=== PATIENT | male | born 1950 | race Caucasian/White ===

== ENCOUNTER → 2018-09-29 | Day surgery (SDC) | payer MEDICARE ==
[2018-09-28 14:48] LABS: BASOPHILS # (AUTO) 0.1 (0.0-0.1); BASOPHILS % 0.8 % (0.0-1.0); EOSINOPHILS # (AUTO) 0.2 (0.0-0.4); EOSINOPHILS % 3.1 % (0.0-6.0); HEMATOCRIT 43.6 % (38.2-49.6); HEMOGLOBIN 14.4 g/dL (14.0-18.0); LYMPHOCYTES # (AUTO) 2.2 (1.0-3.2); LYMPHOCYTES % 33.8 % (18.0-39.1); MEAN CORPUSCULAR HEMOGLOBIN 31.4 pg (28-32); MONOCYTES # (AUTO) 0.6 (0.2-0.8); MONOCYTES % 9.5 % (4.4-11.3); NEUTROPHILS # (AUTO) 3.4 (2.1-6.9); NEUTROPHILS % 51.9 % (38.7-80.0); PLATELET COUNT 177 x10e3/uL (140-360); RED BLOOD COUNT 4.59 x10e6/uL (4.3-5.7); RED CELL DISTRIBUTION WIDTH 12.9 % (11.7-14.4)
[~2018-09-29] MED LIST: CLONAZEPAM1 MG PO; FENTANYL CITRATE/PF 100MCG/2 ML INJ ONE; LOSARTAN-HCTZ1 EAC1 PO; MIDAZOLAM HCL 2 MG/2 ML VIAL ONE; NIACIN500 M2 PO; PANTOPRAZOLE SO40 MG PO; PROPOFOL IV EMULSION 10 MG/ML 50 ML VIAL ONE; REGLAN5 MG PO; SIMETHICONE 40 MG/0.6 ML BTL ONE; TESTOSTERO100 MG/1 M INJ; VIAGRA50 MG PO
--- OUTSIDE RECORDS SUMMARY | 2018-09-29 06:51 | XMS REPORT ---
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 Allergies, Adverse Reactions, Alerts This patient has no known allergies or adverse reactions. Medications This patient has no known medications. Results Test Description Test Time Test Comments Text Results Atomic Results Result Comments CHEST 2 VIEWS [place] [address] Patient Name: WILSON BELLA MR #: [id number] : 1950 Age/Sex: 66/M Req #: [id number] Adm Physician: Ordered by: CHERYL PEACE MD Report #: [id number] Location: [facility] Room/Bed: Procedure: [id number] DX/CHEST 2 VIEWS Exam Date: 01/20/17 Exam Time: 1110 REPORT STATUS: Signed PROCEDURE: Frontal and lateral views of the chest. COMPARISON: None. INDICATIONS: SPOT ON LEFT SIDE OF CHEST ON OUTSIDE NUCLEAR MEDICINE TEST. DENIES COMPLAINT FINDINGS: Lines/tubes: None. Lungs: The lungs are well inflated and clear. There is no evidence of pneumonia or pulmonary edema. Pleura: There is no pleural effusion or pneumothorax. Heart and mediastinum: The heart and the mediastinum are normal. Bones: No acute bony abnormality. Degenerative changes of the thoracic spine. IMPRESSION: No acute radiographic abnormality. Dictated by: Dominick Rothman M.D. on 01/20/2017 at 12:19 Electronically approved by: Dominick Rothman M.D. on 01/20/2017 at 12:19 Dictated By: DOMINICK ROTHMAN MD 121 Transcribed By: [place] on 01/20/179 COPY TO: CHERYL PEACE MD
--- OUTSIDE RECORDS SUMMARY | 2018-09-29 06:51 | XMS REPORT | Summary of Care ---
Author Author [facility] Organization [facility] Address Unknown Phone Unavailable Encounter HQ Encntr_alias(FIN) [id number] Date(s): 07/24/17 - 07/24/17 [facility] [address], [place] [address] [phone] Encounter Diagnosis Radiculopathy, lumbar region (Final) - 07/29/17 Spinal stenosis, lumbar region without neurogenic claudication (Final) - Discharge Disposition: Home or Self Care Attending Physician: Kranthi Mcgill MD Vital Signs No data available for this section Problem List No data available for this section Allergies, Adverse Reactions, Alerts Substance Reaction Severity Status NKDA Active Medications No data available for this section Results No data available for this section Immunizations No data available for this section Procedures No data available for this section Social History No data available for this section Assessment and Plan No data available for this section
--- OUTSIDE RECORDS SUMMARY | 2018-09-29 06:51 | XMS REPORT | Continuity of Care Document ---
Author Author Lesly hemphill Organization Interface Address Unknown Phone Unavailable Problems Problem Status Onset Date Classification Date Reported Comments Source Radiculopathy, lumbar region 07/30/2017 10/31/2017 GUANAKITO Conteh M75.21 - "BICIPITAL TENDINITIS, RIGHT SH Active 03/27/2016 GUANAKITO Hemphill 724.2 - LUMBAGO 724.4 - LUMBOSACRAL DUY Active 11/22/2012 G[facility]O [place] ANAL FISSURE 565.0 565.1 455.2/CPT [id number] Active 02/23/2011 [facility] Spinal stenosis, lumbar region without neurogenic claudication 10/31/2017 GUANAKITO Conteh Medications Medication Details Route Status Patient Instructions Ordering Provider Order Date Source fentanyl 25 microgram, 0.5 mL, Route: IVP, Drug form: INJ, Q5Min, PRN Pain Score 4-6, Start date: 03/19/11 12:41:00, Duration: 4 doses or times, Stop date: Limited # of times IVP No Longer Active Shawn 03/19/2011 [facility] acetaminophen-hydrocodone 325 mg-5 mg oral tablet 1 tab, Route: PO, Drug Form: TAB, Q4H, PRN Pain Score 1-3, Start date: 03/19/11 12:41:00, Duration: 30 day, Stop date: 04/18/11 12:40:00 PO No Longer Active Shawn 03/19/2011 [facility] ondansetron 4 mg, 2 mL, Route: IVP, Drug form: INJ, ONCE, PRN Nausea & Vomiting, Start date: 03/19/11 12:41:00 IVP No Longer Active Shawn 03/19/2011 [facility] naloxone 0.04 mg, 0.1 mL, Route: IVP, Drug form: INJ, Q2MIN, PRN Narcotic Reversal, Start date: 03/19/11 12:41:00, Duration: 8 doses or times, Stop date: Limited # of times IVP No Longer Active Shawn 03/19/2011 [facility] ketorolac 30 mg, 1 mL, Route: IVP, Drug form: INJ, ONCE, PRN Breakthrough Pain, Start date: 03/19/11 12:41:00, Duration: 1 doses or times, Stop date: Limited # of times IVP No Longer Active Shawn 03/19/2011 [facility] hydromorphone 0.5 mg, 0.5 mL, Route: IVP, Drug form: SOLN, Q5Min, PRN Pain Score 4-6, Start date: 03/19/11 12:41:00, Duration: 5 doses or times, Stop date: Limited # of times IVP No Longer Active Shawn 03/19/2011 [facility] meperidine 12.5 mg, 0.25 mL, Route: IVP, Drug form: INJ, Q30Min, PRN Other -See Comment, For shivering, Start date: 03/19/11 12:41:00, Duration: 2 doses or times, Stop date: Limited # of times IVP No Longer Active Shawn 03/19/2011 [facility] flumazenil 0.2 mg, 2 mL, Route: IVP, Drug form: INJ, PRN, PRN Other -See Comment, Initial dose, Start date: 03/19/11 12:41:00, Duration: 5 doses or times, Stop date: Limited # of times IVP No Longer Active Shawn 03/19/2011 [facility] Toradol 10 mg oral tablet 10 mg, PO, Q6H, PRN, 20 btl, Pain, Substitution Allowed, TAB PO Active Voloyiannis 03/19/2011 [facility] Vicodin 5/500 oral tablet 1 tab, PO, Q4H, PRN, 40 btl, for pain, Substitution Allowed, Maintenance, TAB PO Active Voloyiannis 03/19/2011 [facility] lidocaine 1% 0.5 mL, Route: SUB-Q, Drug Form: INJ, ONCALL, Start date: 03/19/11 11:00:00, Duration: 1 doses or times SUB-Q No Longer Active Shawn 03/19/2011 [facility] Lactated Ringers Injection IV 1,000 mL 1,000 mL, Rate: 25 ml/hr, Infuse over: 40 hr, Route: IV, Total Volume: 1,000, Start date: 03/19/11 10:32:00, Duration: 30 day, Stop date: 04/18/11 10:31:00 IV No Longer Active Shawn 03/19/2011 [facility] Lactated Ringers IV 500 mL 500 mL, Rate: 75 ml/hr, Infuse over: 6.7 hr, Route: IV, Total Volume: 500, Start date: 03/19/11 10:32:00, Duration: 30 day, Stop date: 04/18/11 10:31:00 IV No Longer Active Voloyiannis 03/19/2011 [facility] onabotulinumtoxinA 100 unit, Route: IM, Drug form: INJ, ONCE, Start date: 03/19/11 9:00:00, Stop date: 03/19/11 9:00:00 IM Active Voloyiannis 03/19/2011 [facility] doxycycline Substitution Allowed Active 03/13/2011 [facility] Ativan 0.5 mg oral tablet Substitution Allowed Active 03/13/2011 [facility] Livalo 1 mg oral tablet Substitution Allowed Active 03/13/2011 [facility] Bentyl 20 mg, 1 cap, PO, QID, PRN, 40 cap, Abdominal cramping, Substitution Allowed PO Active 03/13/2011 [facility] Dexilant 60 mg oral delayed release capsule Substitution Allowed Active 03/13/2011 [facility] Allergies, Adverse Reactions, Alerts Substance Category Reaction Severity Reaction type Status Date Reported Comments Source Immunizations Immunization Date Given Site Status Last Updated Comments Source Results Order Name Results Value Reference Range Date Interpretation Comments Source Spine lumbar wo contrast MRI Spine lumbar wo contrast MRI EXAM: MRI LUMBAR SPINE WITHOUT CONTRAST DATE: 07/24/2017 8:15 AM QUAL RESEARCH MANAGER . ORDERING PHYSICIAN: Kranthi Mcgill MD CLINICAL INDICATION: LBP; Numbness of Right Leg; Laminectomy - None; TECHNIQUE: Multiplanar, multisequence MRI lumbar spine without IV contrast COMPARISON: 11/24/2012 lumbar magnetic resonance imaging FINDINGS: For the purposes of enumeration, the lowest well formed intervertebral disc was counted as L5-S1 on this exam. INTRASPINAL CONTENTS/CONUS: The conus terminates at L1-L2. No definite dural based lesion. VERTEBRAE: The vertebrae are normal in height. The lordosis is straightened. No focal suspicious bone marrow signal abnormality. PARASPINAL SOFT TISSUES: No edema or definite masses. No aortic aneurysm. DISC SPACES, SPINAL CANAL, AND NEURAL FORAMINA: T12-L1. Intervertebral disc height and signal are maintained. Posterior elements are normal. There is no stenosis. L1-L2. Intervertebral disc height and signal are maintained. Posterior elements are normal. There is no stenosis. L2-L3. Dehydrated disc with diffuse bulge asymmetric to the right. This bilateral facet hypertrophy. Central canal measures 13 mm. Lateral recesses are narrowed. There is [id number]-ax-[id number] the exiting L2 nerve root. Narrowing of the right neural foramen with disc contacting the exiting L3-L4. Desiccated disc with circumferential disc osteophyte complex. There is bilateral facet hypertrophy. Patient has undergone left laminotomy. Central canal measures 12 mm. Lateral recesses are patent. There is moderate narrowing of left neural foramen and mild narrowing of the right. Left exiting nerve root is minimally contacted by facet osteophytes. L4-L5. Desiccated disc with circumferential disc osteophyte complex. There is bilateral facet hypertrophy. Central canal measures 8 mm with slight crowding of the cauda equina. The lateral recesses are narrowed. There is moderate to severe narrowing of the right neural foramina moderate narrowing of left. The right exiting nerve root is deformed by the disc and facets. L5-S1. Dehydrated disc with circumferential disc osteophyte complex. There is bilateral facet hypertrophy. Central canal measures 10 mm. Lateral recesses are narrowed. There is moderate severe narrowing of the right neural foramina moderate narrowing of the left. IMPRESSION: 1. L4-L5 spinal stenosis with mild crowding of the cauda equina 2. Moderate to severe neural foramen narrowing on the right at L4-L5 and L5-S1 07/24/2017 - - Read by: Vicente Frank MD Dictated Date/time: 07/25/17 13:40 Electronically Signed by: Vicente Frank MD 07/25/17 13:47 FINAL REPORT JOHN Conteh Drain/Inj Major Joint/Bursa US Drain/Inj Major Joint/Bursa US EXAM: ULTRASOUND-GUIDED THERAPEUTIC RIGHT BICEPS TENDON SHEATH INJECTION EXAM: ULTRASOUND-GUIDED RIGHT ACROMIOCLAVICULAR JOINT INJECTION DATE: 07/09/2016 12:44 PM QUAL RESEARCH MANAGER INDICATION: right bicep tear COMPARISON: None TECHNIQUE: Consent: An informed consent was obtained from the patient prior to the procedure. Appropriate time out procedures were performed. Preliminary ultrasound demonstrates an intact right biceps tendon with mildly increased synovial fluid around the biceps tendon distal to the bicipital groove. There was osteophytes and capsular thickening along the superior aspect of the right AC joint. The skin was prepped and draped in the usual fashion under aseptic precautions. 1% lidocaine was utilized for local anesthesia. Under direct ultrasound guidance a 25 gauge long spinal needle used to inject 40 mg Kenalog mixed with 1 mL 0.2% ropivacaine solution into the right biceps tendon sheath just distal to the bicipital groove. Post procedure images demonstrated no tendon infiltration. Then using a separate 25-gauge needle, under ultrasound guidance, 40 mg Kenalog mixed with 1 mL 0.2% ropivacaine solution was injected into the right AC joint. No immediate complications. Preprocedure pain score: 8/10 Postprocedure pain score: 8/10 Dr. Zaragoza, attending, was present for the procedure hayden components. IMPRESSION: 1. Technically successful ultrasound-guided therapeutic injection of the right biceps tendon. 2. Technically successful ultrasound-guided therapeutic injection of the right AC joint. 07/09/2016 - - This report was dictated by a Improvement Intern/Fellow. I have personally reviewed the images as well as the Resident's interpretation and agree with the findings. Read by: Jin De La Garza MD Resident: Jin De La Garza MD Dictated Date/time: 07/09/16 14:19 Electronically Signed by: Ron Zaragoza MD 07/10/16 07:17 FINAL REPORT GUANAKITO Hemphill Drain/Inj Major Joint/Bursa US Drain/Inj Major Joint/Bursa US EXAM: ULTRASOUND-GUIDED THERAPEUTIC RIGHT BICEPS TENDON SHEATH INJECTION EXAM: ULTRASOUND-GUIDED RIGHT ACROMIOCLAVICULAR JOINT INJECTION DATE: 07/09/2016 12:44 PM QUAL RESEARCH MANAGER INDICATION: right bicep tear COMPARISON: None TECHNIQUE: Consent: An informed consent was obtained from the patient prior to the procedure. Appropriate time out procedures were performed. Preliminary ultrasound demonstrates an intact right biceps tendon with mildly increased synovial fluid around the biceps tendon distal to the bicipital groove. There was osteophytes and capsular thickening along the superior aspect of the right AC joint. The skin was prepped and draped in the usual fashion under aseptic precautions. 1% lidocaine was utilized for local anesthesia. Under direct ultrasound guidance a 25 gauge long spinal needle used to inject 40 mg Kenalog mixed with 1 mL 0.2% ropivacaine solution into the right biceps tendon sheath just distal to the bicipital groove. Post procedure images demonstrated no tendon infiltration. Then using a separate 25-gauge needle, under ultrasound guidance, 40 mg Kenalog mixed with 1 mL 0.2% ropivacaine solution was injected into the right AC joint. No immediate complications. Preprocedure pain score: 8/10 Postprocedure pain score: 8/10 Dr. Zaragoza, attending, was present for the procedure hayden components. IMPRESSION: 1. Technically successful ultrasound-guided therapeutic injection of the right biceps tendon. 2. Technically successful ultrasound-guided therapeutic injection of the right AC joint. 07/09/2016 - - This report was dictated by a Improvement Intern/Fellow. I have personally reviewed the images as well as the Resident's interpretation and agree with the findings. Read by: Jin De La Garza MD Resident: Jin De La Garza MD Dictated Date/time: 07/09/16 14:19 Electronically Signed by: Ron Zaragoza MD 07/10/16 07:17 FINAL REPORT GUANAKITO Hemphill Shoulder w contrast MRI Shoulder w contrast MRI EXAM: MR ARTHROGRAM RIGHT SHOULDER DATE: 04/10/2016 8:53 AM QUAL RESEARCH MANAGER INDICATION: biceps tendinitis COMPARISON: None TECHNIQUE: Fluoroscopy-guided arthrogram was performed prior to MRI. Please see the corresponding report for further details. Axial, oblique coronal, and oblique sagittal MR images of the shoulder. IV contrast: None. FINDINGS: ROTATOR CUFF AND ASSOCIATED STRUCTURES Rotator cuff: There is a full-thickness tear of a 16 mm segment of the anterior supraspinatus tendon, which cuts obliquely through the supraspinatus tendon. There is 11 mm soft tissue stump along the leading edge of this tear. Less than a centimeter of maximal tendon retraction. The teres minor and infraspinatus are intact. Mild tendinosis of the subscapularis without tear identified. Bursa: Contrast in the subdeltoid bursa related to intra-articular contrast extending through full-thickness rotator cuff tear. Musculature: There is no muscular tear, contusion, or atrophy. Acromioclavicular joint: There are moderate degenerative changes of AC joint with fluid in the AC joint. degenerative changes of the acromioclavicular joint. A type 1 acromion configuration is noted. There is no anterior or lateral acromial downsloping. OSSEOUS STRUCTURES There are no fractures or regions of abnormal bone marrow signal intensity. LONG BICIPITAL TENDON Biceps tendon is normally situated within the bicipital groove. Mild intra- articular biceps tendinosis. GLENOHUMERAL JOINT Joint fluid: There is contrast in the glenohumeral joint.. Cartilage and Bone: No focal hyaline cartilage defects are noted. No Hill-Sachs, reverse Hill-Sachs, or bony Bankart lesions are seen. Labrum: Degenerative tearing of the biceps-labral complex. Anterior labrum is diffusely diminutive. No paralabral cysts are seen. Other support structures: No capsular or ligamentous abnormality is seen. OTHER FINDINGS: None. IMPRESSION: 1. Supraspinatus tendinosis with full-thickness tear of a 16 mm segment of the anterior supraspinatus tendon. Less than a centimeter of maximal tendon retraction. Rotator cuff muscle bulk is normal. 2. Degenerative tearing of the biceps-labral complex. Anterior labrum is diffusely diminutive. 3. Mild intra-articular biceps tendinosis. 4. Moderate degenerative changes of AC joint with fluid in the AC joint. 04/10/2016 - - Read by: Ron Zaragoza MD Dictated Date/time: 04/10/16 15:31 Electronically Signed by: Ron Zaragoza MD 04/10/16 15:54 FINAL REPORT GUANAKITO Hemphill Inj Arthrogram Shoulder Unilat DX Inj Arthrogram Shoulder Unilat DX EXAM: FLUOROSCOPY-GUIDED RIGHT SHOULDER INJECTION FOR MR ARTHROGRAM DATE: 04/10/2016 8:19 AM QUAL RESEARCH MANAGER INDICATION: M75.21 Bicipital tendinitis, right shoulder COMPARISON: None TECHNIQUE: Consent: An informed consent was obtained from the patient prior to the procedure. Appropriate time out procedures were performed. The skin was prepped and draped in the usual fashion under aseptic precautions. 1% lidocaine was utilized for local anesthesia. Under fluoroscopic guidance a 22 gauge long spinal needle was used to access the shoulder joint. 2 mL of Omnipaque 240 was injected under fluoroscopic guidance to confirm intra- articular needle placement. 40 mg of Kenalog was injected into the right shoulder joint. 6 mL of a mixture of 0.1 mL Omniscan with 10 mL of saline, and 4 mL of 0.2% ropivacaine were drawn into a 10 mL syringe. 8 mL of this mixture was injected into the shoulder joint. No immediate complications. Preprocedure pain score: 0/10 at rest, 6-7/10 with activity Postprocedure pain score: 0/10 at rest FLUORO TIME: 0:03 minutes DAP: 0.91 mGy-cm2 FINDINGS: A normal shoulder joint was outlined. IMPRESSION: Technically successful fluoroscopy-guided right shoulder injection for MR arthrogram. 04/10/2016 - - Read by: Ron Zaragoza MD Dictated Date/time: 04/10/16 13:07 Electronically Signed by: Ron Zaragoza MD 04/10/16 13:09 FINAL REPORT GUANAKITO Hemphill Spine lumbar wo contrast MRI Spine lumbar wo contrast MRI MRI LUMBAR SPINE WITHOUT CONTRAST 11/24/2012 CLINICAL: Back pain and right lumbar radiculopathy. TECHNIQUE: Sagittal T1, sagittal T2 with fat saturation, axial T1 and axial T2 images were obtained. No intravenous gadolinium was given. FINDINGS: Comparison is made to 11/16/2012 radiographs. The paravertebral soft tissues are normal. The conus medullaris terminates at the L1-L2 level. L1-L2: Unremarkable. L2-L3: Minimal grade 1 anterolisthesis is present due to mild facet arthrosis and ligamenta flava redundancy. Right foraminal and extraforaminal annular fissuring is present. In addition, right foraminal broad-based disc protrusion is present measuring 5.5 mm in the AP dimension with mild right foraminal stenosis. Impingement of the right L2 exiting nerve root sleeve is present. No central canal stenosis is present. L3-L4: Moderate left foraminal and extraforaminal disc osteophyte complex is present with moderate left foraminal stenosis and mild impingement of the left L3 exiting nerve root sleeve. Left laminectomy changes are seen. No pseudomeningocele, osteomyelitis, or discitis is seen. Mild dorsal disc osteophyte complex is present without central canal stenosis. L4-L5: Grade 1 retrolisthesis is present with mild dorsal disc osteophyte complex. Along with the short lumbar pedicles, moderate ligament flava redundancy and facet arthrosis, there is moderate to severe central canal stenosis at this level. Severe right foraminal stenosis is present due to the prominent right foraminal and extraforaminal osteophytes. Moderate left foraminal stenosis is present. The lateral recesses are significantly stenotic with impingement of the bilateral L5 descending nerve roots. L5-S1: Mild disc bulge is seen with circumferential annular tear. Mild central canal stenosis is present. The lateral recesses are stenotic with minimal impingement of the bilateral S1 proximal nerve root sleeves. Mild bilateral foraminal stenosis is present. IMPRESSION: 1. Multilevel disc degenerative disease and spondylosis. 2. L2-L3 right foraminal disc protrusion with mild right foraminal stenosis and impingement of the right L2 exiting nerve root sleeve. Grade 1 anterolisthesis present. 3. L3-L4 moderate left foraminal stenosis due to degenerative changes with mild impingement of the left L3 exiting nerve root sleeve. Postsurgical changes without central canal stenosis. 4. L4-L5 moderate to severe central canal stenosis, severe right foraminal stenosis, and moderate left foraminal stenosis. Impingement of the bilateral L5 descending nerve roots present due to significant lateral recess stenosis. 5. L5-S1 mild central canal stenosis and mild bilateral foraminal stenosis. Minimal impingement of the bilateral S1 proximal nerve root sleeves suspected. 11/24/2012 - - Read by: Rommel Hamm Dictated Date/time: 11/24/12 12:59 Electronically Signed by: Rommel Hamm MD 11/24/12 17:29 FINAL REPORT [facility] [place] CHEMISTRY AGAP 11.7 meq/L 10.0 - 20.0 03/13/2011 Normal [facility] CHEMISTRY Chloride Lvl 104.0 meq/L 95 - 109 03/13/2011 Normal [facility] CHEMISTRY Sodium Lvl 140.0 meq/L 135 - 145 03/13/2011 Normal [facility] CHEMISTRY Creatinine Lvl 1.3 mg/dL 0.5 - 1.4 03/13/2011 Normal [facility] CHEMISTRY Potassium Lvl 4.7 meq/L 3.5 - 5.1 03/13/2011 Normal [facility] CHEMISTRY Calcium Lvl 9.0 mg/dL 8.5 - 10.5 03/13/2011 Normal [facility] CHEMISTRY CO2 29.0 meq/L 24 - 32 03/13/2011 Normal [facility] CHEMISTRY BUN 17.0 mg/dL 7 - 22 03/13/2011 Normal [facility] CHEMISTRY Glucose Lvl 108.0 mg/dL 03/13/2011 NA 1Interpretive Data: Reference Ranges : 0 - 7 days : 41 - 90 mg/dL7 days - 150 yrs : 70 - 99 mg/dL (fasting), based on the clinical recommendations of the [place] [employer]. [facility] HEMATOLOGY Hct 42.3 % 42.0 - 54.0 03/13/2011 Normal [facility] HEMATOLOGY Hgb 14.8 g/dL 14.0 - 18.0 03/13/2011 Normal [facility] Vital Signs Vital Sign Value Date Comments Source Systolic (mm Hg) 133.0 03/19/2011 [facility] Respitory Rate 18.0 03/19/2011 [facility] Diastolic (mm Hg) 84.0 03/19/2011 [facility] Systolic (mm Hg) 129.0 03/19/2011 [facility] Respitory Rate 5.0 03/19/2011 [facility] Diastolic (mm Hg) 89.0 03/19/2011 [facility] Diastolic (mm Hg) 76.0 03/19/2011 [facility] Systolic (mm Hg) 127.0 03/19/2011 [facility] Respitory Rate 10.0 03/19/2011 [facility] Heart Rate 70.0 03/19/2011 [facility] Temperature Oral (F) 98.4 F 03/13/2011 [facility] Heart Rate 72.0 03/13/2011 [facility] Weight 97.727 03/13/2011 [facility] Height 175.26 cm 03/13/2011 [facility] Encounters Location Location Details Encounter Type Encounter Number Reason For Visit Attending Provider ADM Date DC Date Status Source [facility] DS [id number] THEMARITZA HALE 03/19/2011 03/19/2011 Active [facility] OD [id number] 724.2 - LUMBAGO 724.4 - LUMBOSACRAL DUY MARK DUNLAPN 11/24/2012 Active GUANAKITO Conteh [facility] [place] [facility] [id number] Ruel Burton 04/10/2016 04/11/2016 GUANAKITO Hemphill [facility] [place] [facility] [id number] Kranthi Mcgill 07/09/2016 07/10/2016 [place] [facility] [place] [facility] [id number] Kranthi Artem 07/24/2017 07/25/2017 JOHN Conteh Procedures Procedure Code Date Perfomer Comments Source DRAIN/INJ JOINT/BURSA W07/09/2016 JOHN Hemphill DRAIN/INJ JOINT/BURSA 07/09/2016 JOHN Hemphill Injection procedure for shoulder arthrography or enhanced CT/MRI shoulder arthrography [id number] 04/10/2016 JOHN Hemphill
--- OUTSIDE RECORDS SUMMARY | 2018-09-29 06:51 | XMS REPORT | Summary of Care ---
Author Author [facility] [place] Address Unknown Phone Unavailable Encounter HQ Encntr_alias(FIN) [id number] Date(s): 04/10/16 - 04/10/16 [facility] [place] [address] [place] [address] [phone] Discharge Disposition: Home or Self Care Attending Physician: Ruel Burton MD Vital Signs No data available for this section Problem List No data available for this section Allergies, Adverse Reactions, Alerts Substance Reaction Severity Status NKDA Active Medications No data available for this section Results No data available for this section Immunizations No data available for this section Procedures Procedure Date Related Diagnosis Body Site Injection procedure for shoulder arthrography 04/10/[address]/MRI shoulder arthrography Social History No data available for this section Assessment and Plan No data available for this section
--- OUTSIDE RECORDS SUMMARY | 2018-09-29 06:51 | XMS REPORT | CCD ---
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
--- OUTSIDE RECORDS SUMMARY | 2018-09-29 06:51 | XMS REPORT | Summary of Care ---
Author Author [facility] [place] Address Unknown Phone Unavailable Encounter HQ Encntr_alias(FIN) [id number] Date(s): 07/09/16 - 07/09/16 [facility] Out[facility] [place] [address] [place] [phone] Discharge Disposition: Home or Self Care Attending [...] Procedures Procedure Date Related Diagnosis Body Site DRAIN/INJ JOINT/BURSA W/ 07/09/16 DRAIN/INJ JOINT/BURSA W/ 07/09/16 Social History No data available for this section Assessment and Plan No data available for this section
--- OUTSIDE RECORDS SUMMARY | 2018-09-29 06:51 | XMS REPORT | CCD ---
Author Author Auto Generated Organization [facility] Address Unknown Phone Unavailable Care Team Providers Care Finisher Plate Name Role Phone Ranulfo Winn RP Allison Turcios CP [phone] GeovannyLillieJumana CP [phone] Brandi Menchaca CP Unavailable Zachariah Escobar CP ChartServer, Login CP Unavailable Doris Manzo CP [phone] SYSTEM, SYSTEM CP Unavailable Cheyanne Tang CP Unavailable Chanel Shepard CP Bekah Silva CP Unavailable Yoselyn Wilcox CP Unavailable Brent Escobar CP Peyton Payton CP Unavailable Allergies, Adverse Reactions, Alerts Substance Reaction Status NKDA ?? Active Medications Medication Instructions Start Date End Date Status doxycycline Substitution Allowed 03/13/2011 ?? Ordered Ativan 0.5 mg oral Substitution Allowed 03/13/2011 ?? Ordered tablet fentanyl 25 microgram, 0.5 mL, Route: IVP, 03/19/2011 03/19/2011 Discontinued Drug form: INJ, Q5Min, PRN Pain Score 4-6, Start date: 03/19/11 12:41:00, Duration: 4 doses or times, Stop date: Limited # of times acetaminophen-hydroc 1 tab, Route: PO, Drug Form: TAB, 03/19/2011 03/19/2011 Discontinued odone 325 mg-5 mg Q4H, PRN Pain Score 1-3, Start oral tablet date: 03/19/11 12:41:00, Duration: 30 day, Stop date: 04/18/11 12:40:00 acetaminophen-hydroc 2 tab, Route: PO, Drug Form: TAB, 03/19/2011 03/19/2011 Discontinued odone 325 mg-5 mg Q4H, PRN Pain Score 4-6, Start oral tablet date: 03/19/11 12:41:00, Duration: 30 day, Stop date: 04/18/11 12:40:00 ondansetron 4 mg, 2 mL, Route: IVP, Drug form: 03/19/2011 03/19/2011 Discontinued INJ, ONCE, PRN Nausea & Vomiting, Start date: 03/19/11 12:41:00 naloxone 0.04 mg, 0.1 mL, Route: IVP, Drug 03/19/2011 03/19/2011 Discontinued form: INJ, Q2MIN, PRN Narcotic Reversal, Start date: 03/19/11 12:41:00, Duration: 8 doses or times, Stop date: Limited # of times ketorolac 30 mg, 1 mL, Route: IVP, Drug form: 03/19/2011 03/19/2011 Discontinued INJ, ONCE, PRN Breakthrough Pain, Start date: 03/19/11 12:41:00, Duration: 1 doses or times, Stop date: Limited # of times hydromorphone 0.5 mg, 0.5 mL, Route: IVP, Drug 03/19/2011 03/19/2011 Discontinued form: SOLN, Q5Min, PRN Pain Score 4-6, Start date: 03/19/11 12:41:00, Duration: 5 doses or times, Stop date: Limited # of times meperidine 12.5 mg, 0.25 mL, Route: IVP, Drug 03/19/2011 03/19/2011 Discontinued form: INJ, Q30Min, PRN Other -See Comment, For shivering, Start date: 03/19/11 12:41:00, Duration: 2 doses or times, Stop date: Limited # of times flumazenil 0.2 mg, 2 mL, Route: IVP, Drug 03/19/2011 03/19/2011 Discontinued form: INJ, PRN, PRN Other -See Comment, Initial dose, Start date: 03/19/11 12:41:00, Duration: 5 doses or times, Stop date: Limited # of times lidocaine 1% 0.5 mL, Route: SUB-Q, Drug Form: 03/19/2011 03/19/2011 Discontinued INJ, ONCALL, Start date: 03/19/11 11:00:00, Duration: 1 doses or times Lactated Ringers 1,000 mL, Rate: 25 ml/hr, Infuse 03/19/2011 03/19/2011 Discontinued Injection IV 1,000 over: 40 hr, Route: IV, Total mL Volume: 1,000, Start date: 03/19/11 10:32:00, Duration: 30 day, Stop date: 04/18/11 10:31:00 Livalo 1 mg oral Substitution Allowed 03/13/2011 ?? Ordered tablet Bentyl 20 mg, 1 cap, PO, QID, PRN, 40 cap, 03/13/2011 03/23/2011 Ordered Abdominal cramping, Substitution Allowed Toradol 10 mg oral 10 mg, PO, Q6H, PRN, 20 btl, Pain, 03/19/2011 ?? Ordered tablet Substitution Allowed, TAB Vicodin 5/500 oral 1 tab, PO, Q4H, PRN, 40 btl, for 03/19/2011 ?? Ordered tablet pain, Substitution Allowed, Maintenance, TAB Dexilant 60 mg oral Substitution Allowed 03/13/2011 ?? Ordered delayed release capsule Lactated Ringers IV 500 mL, Rate: 75 ml/hr, Infuse 03/19/2011 03/19/2011 Discontinued 500 mL over: 6.7 hr, Route: IV, Total Volume: 500, Start date: 03/19/11 10:32:00, Duration: 30 day, Stop date: 04/18/11 10:31:00 onabotulinumtoxinA 100 unit, Route: IM, Drug form: 03/19/2011 03/19/2011 Ordered INJ, ONCE, Start date: 03/19/11 9:00:00, Stop date: 03/19/11 9:00:00 Vital Signs Most recent to oldest [Reference Range]: 1 2 3 Height 175.26 cm (03/13/2011 09:34:00) ? Temperature Oral [96.4-99.1 DegF] 98.4 DegF (03/13/2011 09:59:00) ? Systolic Blood Pressure [90-140 mmHg] 133 mmHg (03/19/2011 14:30:00) ?? 129 mmHg (03/19/2011 14:00:00) ?? 127 mmHg (03/19/2011 13:45:00) ?? Diastolic Blood Pressure [60-90 mmHg] 84 mmHg (03/19/2011 14:30:00) ?? 89 mmHg (03/19/2011 14:00:00) ?? 76 mmHg (03/19/2011 13:45:00) ?? Respiratory Rate [14-20 BRMIN] 18 BRMIN (03/19/2011 14:30:00) ?? 5 BRMIN *LOW* (03/19/2011 14:00:00) ?? 10 BRMIN *LOW* (03/19/2011 13:45:00) ?? Peripheral Pulse Rate [60-100 bpm] 70 bpm (03/19/2011 11:20:00) ?? 72 bpm (03/13/2011 09:59:00) ? Weight 97.727 kg (03/13/2011 09:34:00) ? Results CHEMISTRY Most recent to oldest [Reference Range]: 1 Sodium Lvl [135-145 mEq/L] 140 mEq/L (03/13/2011 10:25:00) ?? Potassium Lvl [3.5-5.1 mEq/L] 4.7 mEq/L (03/13/2011 10:25:00) ?? Chloride Lvl [95-109 mEq/L] 104 mEq/L (03/13/2011 10:25:00) ?? CO2 [24-32 mEq/L] 29 mEq/L (03/13/2011 10:25:00) ?? AGAP [10.0-20.0 mEq/L] 11.7 mEq/L (03/13/2011 10:25:00) ?? Creatinine Lvl [0.5-1.4 mg/dL] 1.3 mg/dL (03/13/2011 10:25:00) ?? BUN [7-22 mg/dL] 17 mg/dL (03/13/2011 10:25:00) ?? Glucose Lvl 108 mg/dL 1 *NA* (03/13/2011 10:25:00) ?? Calcium Lvl [8.5-10.5 mg/dL] 9.0 mg/dL (03/13/2011 10:25:00) ?? 1Interpretive Data: Reference Ranges : 0 - 7 days : 41 - 90 mg/dL7 days - 150 yrs : 70 - 99 mg/dL (fasting), based on the clinical recommendations of the [place] [employer]. HEMATOLOGY Most recent to oldest [Reference Range]: 1 Hgb [14.0-18.0 g/dL] 14.8 g/dL (03/13/2011 10:25:00) ?? Hct [42.0-54.0 %] 42.3 % (03/13/2011 10:25:00) ??
[2018-09-29 08:45] VITALS: BP 138/99
--- NOTE | 2018-09-29 11:39 | Operative Report ---
DATE OF PROCEDURE: 09/29/2018 SURGEON: Danial Gonzalez MD PROCEDURE PERFORMED: Esophagogastroduodenoscopy. PREOPERATIVE DIAGNOSIS: History of Weller's esophagus. POSTOPERATIVE DIAGNOSES: Hiatal hernia, Weller's esophagus, and gastritis. PREOPERATIVE MEDICATIONS: Consisted of MAC anesthesia. DESCRIPTION OF PROCEDURE: Using an Olympus Power Union video gastroscope, it was inserted into the patient's oropharynx, advanced to the hypopharynx, and down to the esophagus. The mucosa present in the esophagus was normal until we got down to 38 cm. From 38 down to 40 cm, there were changes of Weller's esophagus and from 40 to 43 cm was hiatal hernia that seems to be a fixed type. Biopsies were obtained in the area of Weller's looking for dysplasia. The stomach was entered and insufflated with air. The mucosa present in the cardia, fundus, body, and antrum was viewed. There was evidence of gastritis down in the antrum of the stomach with some erythema, but no ulcerations. The rest of the stomach appeared to be normal. The motility was normal. The pylorus was visualized and entered. The duodenal bulb and postbulbar duodenum were found to be within normal limits. The endoscope was then withdrawn back up into the stomach, retroflexed viewing the cardia and fundus below. It was normal except for evidence of hiatal hernia. The endoscope was then placed back into the body of the stomach and then withdrawn back up into the esophagus, hypopharynx, oropharynx, and out of the patient's mouth and procedure was ended. Danial Gonzalez MD SAF/MODL /[id number]
== END | disposition home or self-care (01) ==
LOC: OR 06:46
PROVIDERS: ATTEND Internal Medicine Gastroenterology
DX: K22.70 Barrett's esophagus without dysplasia (principal); K29.70 Gastritis, unspecified, without bleeding; K58.8 Other irritable bowel syndrome; K21.9 Gastro-esophageal reflux disease without esophagitis; K44.9 Diaphragmatic hernia without obstruction or gangrene; G47.33 Obstructive sleep apnea (adult) (pediatric); I10 Essential (primary) hypertension; M54.9 Dorsalgia, unspecified; E78.5 Hyperlipidemia, unspecified; F41.9 Anxiety disorder, unspecified; Z01.810 Encounter for preprocedural cardiovascular examination; Z01.812 Encounter for preprocedural laboratory examination; Z68.31 Body mass index [BMI] 31.0-31.9, adult
CPT/HCPCS: 36415; 43239; 85025; 93005; J2250; J2704

== ENCOUNTER 2020-02-19 13:19 | Observation (INO) | payer MEDICARE ==
[~2020-02-19] VITALS: Ht 175.3 cm; Wt 99.5 kg
[~2020-02-19 13:19] MED LIST changes: -FENTANYL CITRATE/PF 100MCG/2 ML INJ ONE; -MIDAZOLAM HCL 2 MG/2 ML VIAL ONE; -PROPOFOL IV EMULSION 10 MG/ML 50 ML VIAL ONE; -SIMETHICONE 40 MG/0.6 ML BTL ONE
--- OUTSIDE RECORDS SUMMARY | 2020-02-19 14:32 | XMS REPORT | Continuity of Care Document ---
Author Author [facility] t Organization [facility] Address [address] [place] [address] Phone Unavailable Care Team Providers Care Field Care Advocate Name Role Phone Valeriy Domínguez Attphys Ector Mcgill Attphys Kate PEACE Attphys Unavailable Darian Burton Attphys Problems Condition Name Condition Details Condition Category Status Onset Date Resolution Date Last Treatment Date Treating Clinician Comments Source M75.21 - "BICIPITAL TENDINITIS, RIGHT SH M75.21 - "BICIPITAL TENDINITIS, RIGHT SH Active 03/27/2016 JOHN Gandhi Diagnosis Active 2016-03-27 00:01:00 2016-04-10 08:19:00 Lesly Gandhi 724.2 - LUMBAGO 724.4 - LUMBOSACRAL DUY 724.2 - LUMBAGO 724.4 - LUMBOSACRAL DUY Active 11/22/2012 [facility] [place] Diagnosis Active 2012-11-22 00:01:00 2012-11-24 07:33:00 Ibrahima Gandhi ANAL FISSURE 565.0 565.1 455.2/CPT 11160 33729 ANAL FISSURE 565.0 565.1 455.2/CPT 57351 51533 Active 02/23/2011 [facility] Active 2011-02-23 00:00:00 2011-03-19 09:42:00 Lesly Gandhi Spinal stenosis, lumbar region without neurogenic ryan dication Spinal stenosis, lumbar region without neurogenic claudication 10/31/2017 [facility] [place] Problem 2017-10-31 11:25:32 Lesly Gandhi Cataract (disorder) Georgie ract (disorder) Resolved Problem 02/01/2020 [facility] Problem Resolved 2020-02-01 00:15:22 Lesly Gandhi Hypertensive disorder, systemic arterial (disorder) Hypertensive disorder, systemic arterial (disorder) Resolved Problem 02/01/2020 [facility] Problem Resolved 2020-02-01 00:15:22 Lesly Guerreroann Lower Back Pain Lowe r Back Pain Active 03/31/2013 [facility] Problem Active 2013-03-31 18:48:59 mayra Guerreroann Lumbar Radiculopathy Lumb ar Radiculopathy Active 03/31/2013 [facility] Problem Active 2013-03-31 18:48:59 Lesly Guerreroann 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) 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) Active Problem 02/01/2020 [facility] Problem Active 2020-02-01 00: 15:22 Lesly Guerreroann Impotence (disorder) Impo tence (disorder) Active Problem 02/01/2020 [facility] Problem Active 2020-02-01 00:15:22 Lesly Gandhi Simple obesity (disorder) Simp le obesity (disorder) Active Problem 02/01/2020 [facility] Problem Active 2020-02-01 00:15:22 Lesly Guerreroann Radiculopathy, lumbar region R adiculopathy, lumbar region 07/30/2017 10/31/2017 [facility] [place] Problem 201 12-18-15 04:44:51 2017-10-31 11:25:32 2017-10-31 11:25:32 [facility] [place] Allergies, Adverse Reactions, Alerts Allergy Name Allergy Type Status Severity Reaction(s) Onset Date Inacti ve Date Treating Clinician Comments Source No Known Drug Allergies No Known Drug Allergies Active [facility] [place] No Known Medication Allergies No Known Medication Allergies Active Lesly Gandhi Family History Family Member Diagnosis Comments Start Date Stop Date Source Unknown Family Member Family History 2012-11-16 22:31:45 2 22:31:45 Lesly Gandhi Social History Social Habit Start Date Stop Date Quantity Comments Source Social History 2013-03-31 18:48:59 2013-03-31 18:48:59 Lesly Gandhi Smoking Status Start Date Stop Date Source Social History Lesly Gandhi Medications Ordered Medication Name Filled Medication Name Start Date Stop Da te Current Medication? Ordering Clinician Indication Dosage Frequency Signature (SIG) Comments Components Source Doxycycline Hyclate 100 MG Oral Capsule 2013-03-31 18:48:59 Yes (Active) Lesly Gandhi Livalo 2 MG Oral Tablet 2013-03-31 18:48:59 Yes (Active) Lesly Gandhi LORazepam 0.5 MG Oral Tablet 2013-03-31 18:48:59 Yes (Active) Lesly Gandhi Dexilant CPDR 2013-03-31 18:48:59 Yes (Acti ve) [facility] [place] fentanyl 2011-03-19 17:41:00 No Cheryl T Shawn 25 microgram, 0.5 mL, Route: IVP, Drug form: INJ, Q5Min, PRN Pain Score 4-6, Start date: 03/19/11 12:41:00, Duration: 4 doses or times, Stop date: Limited # of times Lesly Gandhi acetaminophen-hydrocodone 325 mg-5 mg oral tablet 17:41:00 No Cheryl T Shawn 1 tab, Route: P O, Drug Form: TAB, Q4H, PRN Pain Score 1- 3, Start date: 03/19/11 12:41:00, Duration: 30 day, Stop date: 04/18/11 12:40:00 [facility] [place] ondansetron 2011-03-19 17:41:00 No Cheryl T Shawn 4 mg, 2 mL, Route: IVP, Drug form: INJ, ONCE, PRN Nausea & Vomiting, Start date: 03/19/11 12:41:00 [facility] [place] naloxone 2011-03-19 17:41:00 No Cheryl T Shawn 0.04 mg, 0.1 mL, Route: IVP, Drug form: INJ, Q2MIN, PRN Narcotic Reversal, Start date: 03/19/11 12:41:00, Duration: 8 doses or times, Stop date: [facility] ketor[facility]ac 2011-03-19 17:41:00 No Cheryl T Shawn 30 mg, 1 mL, Route: IVP, Drug form: INJ, ONCE, PRN Breakthrough Pain, Start date: 03/19/11 12:41:00, Duration: 1 doses or times, Stop date: Limited # of times [facility] hydromorphone 2011-03-19 17:41:00 No Cheryl T Shawn 0.5 mg, 0.5 mL, Route: IVP, Drug form: SOLN, Q5Min, PRN Pain Score 4-6, Start date: 03/19/11 12:41:00, Duration: 5 doses or times, Stop date: Limited # of times Lesly Gandhi meperidine 2011-03-19 17:41:00 No Cheryl T Shawn 12.5 mg, 0.25 mL, Route: IVP, Drug form: INJ, Q30Min, PRN Other -See Comment, For shivering, Start date: 03/19/11 12:41:00, Duration: 2 doses or times, Stop date: Limited # of times Lesly Gandhi flumazenil 2011-03-19 17:41:00 No Cheryl T Shawn 0.2 mg, 2 mL, Route: IVP, Drug form: INJ, PRN, PRN Other -See Comment, Initial dose, Start date: 03/19/11 12:41:00, Duration: 5 doses or times, Stop date: Limited # of times Lesly Gandhi Toradol 10 mg oral tablet 2011-03-19 17:02:45 Yes Th eodoros Voloyiannis 10 mg, PO, Q6H, PRN, 20 btl, Pain, Substitution Allowed, TAB [facility] [place] Vicodin 5/500 oral tablet 2011-03-19 17:02:39 Yes Th eodoros Voloyiannis 1 tab, PO, Q4H, PRN, 40 btl, for pain, Substitution Al lowed, Maintenance, TAB [facility] lidocaine 1% 2011-03-19 16:00:00 No Kennedy Vu Shawn 0.5 mL, Route: SUB- Q, Drug Form: INJ, ONCALL, Start date: 03/19/11 11:00:00, Duration: 1 doses or times [facility] [place] Lactated Ringers Injection IV 1,000 mL 2011-03-19 15:32:00 No Kennedy Vu Shawn 1,000 mL, Rate: 25 ml/hr, Infuse over: 40 hr, Route: IV, Total Volume: 1,000, Start date: 03/19/11 10:32:00, Duration: 30 day, Stop date: 04/18/11 10:31:00 [facility] [place] Lactated Ringers IV 500 mL 2011-03-19 15:32:00 No T heodoros Voloyiannis 500 mL, Rate: 75 ml/hr, Infuse over: 6.7 hr, Route: IV, Total Volume: 500, Start date: 03/19/11 10:32:00, Duration: 30 day, Stop date: 04/18/11 10:31:00 Lesly Gandhi onabotulinumtoxinA 2011-03-19 14:00:00 Yes Thenova salgadoyiannis 100 unit, Route: IM, Drug form: INJ, ONCE, Start date: 03/19/11 9:00:00, Stop date: 03/19/11 9:00:00 Lesly Gandhi doxycycline 2011-03-13 15:11:09 Yes Substitu tion Allowed Lesly Gandhi Ativan 0.5 mg oral tablet 2011-03-13 15:10:51 Yes Substitution Allowed Lesly Gandhi Livalo 1 mg oral tablet 2011-03-13 15:10:33 Yes Substitution Allowed Lesly Gandhi Bentyl 2011-03-13 15:10:16 Yes 20 mg, 1 cap, PO, QID, PRN, 40 cap, Abdominal cramping, Substitution Allowed Lesly Gandhi Dexilant 60 mg oral delayed release capsule 2011-03-13 15:10:01 Yes Substitution Allowed Lesly Gandhi Vital Signs Vital Name Observation Time Observation Value Comments Source Height 2020-01-29 13:44:00 172.72 cm Lesly Gandhi Weight 2020-01-29 13:44:00 Lesly Gandhi BMI Calculated 2020-01-29 13:44:00 [facility] [place] Systolic (mm Hg) 2011-03-19 19:30:00 Jamie rial [place] Respitory Rate 2011-03-19 19:30:00 [facility] [place] Diastolic (mm Hg) 2011-03-19 19:30:00 Mem orial [place] Systolic (mm Hg) 2011-03-19 19:00:00 Jamie rial [place] Respitory Rate 2011-03-19 19:00:00 [facility] [place] Diastolic (mm Hg) 2011-03-19 19:00:00 Mem [facility] [place] Diastolic (mm Hg) 2011-03-19 18:45:00 Mem [facility] [place] Systolic (mm Hg) 2011-03-19 18:45:00 Jamie rial [place] Respitory Rate 2011-03-19 18:45:00 [facility] [place] Heart Rate 2011-03-19 16:20:00 [facility] Temperature Oral (F) 2011-03-13 14:59:00 98.4 F [facility] Heart Rate 2011-03-13 14:59:00 [facility] Weight 2011-03-13 14:34:00 [facility] Height 2011-03-13 14:34:00 175.26 cm [facility] Procedures Procedure Date / Time Performed Performing Clinician Rhiannon garcia Cataract surgery 2018-05-17 00:00:00 [facility] rmann DRAIN/INJ JOINT/BURSA W/ 2016-07-09 19:35:51 [facility] orial [place] Injection procedure for shoulder arthrog cydney or enhanced CT/MRI shoulder arthrography 2016-04-10 15:30:34 [facility] Cholecystectomy 1999-05-17 00:00:00 [facility] magdaleno Plan of Care Planned Activity Planned Date Details Comments Source Future Scheduled Test 2013-03-31 18:48:59 Plan of Care [code = 1877 6-5] [facility] Future Scheduled Test 2012-12-03 16:26:17 Plan of Care [code = 1877 6-5] [facility] Future Scheduled Test 2012-11-16 22:31:45 Plan of Care [code = 1877 6-5] [facility] Encounters Start Date/Time End Date/Time Encounter Type Admission Type [facility] Care Department Encounter ID Source 2020-01-29 08:50:00 2020-01-29 23:59:59 Outpatient Tanner Domínguez [facility] [id number] 2019-11-20 11:03:05 2019-11-21 23:59:59 Outpatient [facility] [id number] 2017-07-24 07:56:00 2017-07-24 23:59:00 Outpatient Kranthi Walters [facility] [id number] 2016-07-09 12:11:00 2016-07-09 23:59:[address] [id number] 2016-04-10 08:09:00 2016-04-10 23:59:00 Outpatient Ruel Burton [facility] [id number] 2013-03-31 12:48:59 2013-03-31 12:48:59 Outpatient MARK FLORES [id number] 2012-12-03 11:26:39 2012-12-03 11:26:17 Outpatient MARK FLORES [id number] 2012-11-16 17:31:45 2012-11-16 17:31:45 Outpatient MARK FLORES [id number] Results Test Description Test Time Test Comments Results Result Comments Source CHEMISTRY 2011-03-13 15:25:00 11.7 [facility] [place] CHEMISTRY 2011-03-13 15:25:00 104.0 [facility] [place] CHEMISTRY 2011-03-13 15:25:00 140.0 [facility] [place] CHEMISTRY 2011-03-13 15:25:00 1.3 [facility] [place] CHEMISTRY 2011-03-13 15:25:00 4.7 [facility] [place] CHEMISTRY 2011-03-13 15:25:00 9.0 [facility] [place] CHEMISTRY 2011-03-13 15:25:00 29.0 [facility] [place] CHEMISTRY 2011-03-13 15:25:00 17.0 [facility] [place] CHEMISTRY 2011-03-13 15:25:00 108.0 [facility] [place] HEMATOLOGY 2011-03-13 15:25:00 42.3 [facility] [place] HEMATOLOGY 2011-03-13 15:25:00 14.8 [facility] [place] CHEST 2 VIEWS [place] [address] Patient Name: WILSON BELLA MR #: [id number] : 1950 Age/Sex: 66/M Req #: [id number] Adm Physician: Ordered by: CHERYL PEACE MD Report #: [id number] Location: [facility] Room/Bed: Procedure: [id number] DX/CHEST 2 VIEWS Exam Date: 01/20/17 Exam [...] at 12:19 Dictated By: DOMINICK ROTHMAN MD [id number] Transcribed By: [place] on 01/20/17 1219 COPY TO: CHERYL PEACE MD
--- OUTSIDE RECORDS SUMMARY | 2020-02-19 14:32 | XMS REPORT | Continuity of Care Document ---
Author Author [employer] [facility] [employer] Organization [employer] Address Unknown Phone Unavailable Care Team Providers Care Management Tech Name Role Phone [employer] Unavailable Un available Problems Problem Status Onset Date Classification Date Reported Comments Source Radiculopathy, lumbar region 07/30/2017 10/31/2017 [facility] M75.21 - "BICIPITAL TENDINITIS, RIGHT SH Active 03/27/2016 [facility] [place] 724.2 - LUMBAGO 724.4 - LUMBOSACRAL DUY Active 11/22/2012 [facility] ANAL FISSURE 565.0 565.1 455.2/CPT 58005 09530 Active 02/23/2011 [facility] Lower Back Pain Active 03/31/2013 [facility] Lumbar Radiculopathy Active 03/31/2013 [facility] Spinal stenosis, lumbar region without n eurogenic claudication 10/31/2017 [facility] 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) Active Prob nallely 02/01/2020 [facility] Cataract (disorder) Resolved Problem 02/01/2020 [facility] Hypertensive disorder, systemic arterial (disorder) Resolved Problem 02/01/2020 [facility] Impotence (disorder) Active Problem 02/01/2020 [facility] Simple obesity (disorder) Acti ve Problem [facility] Medications Medication Details Route Status Patient Instructions Ordering Provider Order Date Source fentanyl 25 microgram, 0.5 mL, Route: IVP, Drug form: INJ, Q5Min, PRN Pain Score 4-6, Start date: 03/19/11 12:41:00, Duration: 4 doses or times, Stop date: Limited # of times IVP No Longer Active Shawn 03/19/2011 [facility] acetaminophen-hydrocodone 325 mg-5 mg oral tablet 1 tab, Route: PO, Drug Form: TAB, Q4H, PRN Pain Score 1-3, Start date: 03/19/11 12:41:00, Duration: 30 day, Stop date: 04/18/11 12:40:00 PO No Longer Active Shawn 03/19/2011 [facility] ondansetron 4 mg, 2 mL, Route: IVP, Drug form: INJ, ONCE, PRN Nausea & Vomiting, Start date: 03/19/11 12:41:00 IVP No Longer Active Shawn 03/19/2011 [facility] naloxone 0.04 mg, 0.1 mL, Rout e: IVP, Drug form: INJ, Q2MIN, PRN Narcotic Reversal, Start date: 03/19/11 12:41:00, Duration: 8 doses or times, Stop date: Limited # of times IVP No Longer Active Shawn 03/19/2011 [facility] ketorolac 30 mg, 1 mL, Route: IVP, Drug form: INJ, ONCE, PRN Breakthrough Pain, Start date: 03/19/11 12:41:00, Duration: 1 doses or times, Stop date: Limited # of times IVP No Longer Active Shawn 03/19/2011 [facility] hydromorphone 0.5 mg, 0.5 mL, Route: IVP, Drug form: SOLN, Q5Min, PRN Pain Score 4-6, Start date: 03/19/11 12:41:00, Duration: 5 doses or times, Stop date: Limited # of times IVP No Longer Active Shawn 03/19/2011 [facility] meperidine 12.5 mg, 0.25 mL, R oute: IVP, Drug form: INJ, Q30Min, PRN Other -See Comment, For shivering, Start date: 03/19/11 12:41:00, Duration: 2 doses or times, Stop date: Limited # of times IVP No Longer Active Shawn 03/19/2011 [facility] flumazenil 0.2 mg, 2 mL, Route : IVP, Drug form: INJ, PRN, PRN Other -See Comment, Initial dose, Start date: 03/19/11 12:41:00, Duration: 5 doses or times, Stop date: Limited # of times IVP No Longer Active Shawn 03/19/2011 [facility] Toradol 10 mg oral tablet 10 m g, PO, Q6H, PRN, 20 btl, Pain, Substitution Allowed, TAB PO Active Delano yiannis 03/19/2011 [facility] Vicodin 5/500 oral tablet 1 ta b, PO, Q4H, PRN, 40 btl, for pain, Substitution Allowed, Maintenance, TAB PO Active Voloyiannis 03/19/2011 [facility] lidocaine 1% 0.5 mL, Route: FIELDS B-Q, Drug Form: INJ, ONCALL, Start date: 03/19/11 11:00:00, Duration: 1 doses or times SUB-Q No Longer Active Shawn 03/19/2011 [facility] Lactated Ringers Injection IV 1,000 mL 1,000 mL, Rate: 25 ml/hr, Infuse over: 40 hr, Route: IV, Total Volume: 1,000, Start date: 03/19/11 10:32:00, Duration: 30 day, Stop date: 04/18/11 10:31:00 IV No Longer Active Shawn 03/19/2011 [facility] Lactated Ringers IV 500 mL 500 mL, Rate: 75 ml/hr, Infuse over: 6.7 hr, Route: IV, Total Volume: 500, Start date: 03/19/11 10:32:00, Duration: 30 day, Stop date: 04/18/11 10:31:00 IV No Longer Active Voloyiannis 03/19/2011 [facility] onabotulinumtoxinA 100 unit, R oute: IM, Drug form: INJ, ONCE, Start date: 03/19/11 9:00:00, Stop date: 03/19/11 9:00:00 [facility] doxycycline Substitution Allow ed Active 03/13/2011 [facility] Ativan 0.5 mg oral tablet Subs titution Allowed Active 03/13/2011 [facility] Livalo 1 mg oral tablet Substi tution Allowed Active 03/13/2011 [facility] Bentyl 20 mg, 1 cap, PO, QID, PRN, 40 cap, Abdominal cramping, Substitution Allowed PO Active 03/13/2011 [facility] Dexilant 60 mg oral delayed release capsule Substitution Allowed Active 03/13/2011 [facility] Doxycycline Hyclate 100 MG Oral Capsule (Active) Active [facility] Livalo 2 MG Oral Tablet (Acti ve) Active [facility] LORazepam 0.5 MG Oral Tablet (Active) Active [facility] Dexilant CPDR (Active) Active [facility] Allergies, Adverse Reactions, Alerts Substance Category Reaction Severity Reaction type Status Date Reported Comments Source No Known Drug Allergies drug a llergy drug aller gy Active [facility] No Known Medication Allergies Assertion Drug aller gy [facility] Group Immunizations No Data Provided for This Section Results Order Name Results Value Reference Range Date Interpretation Comments Source CHEMISTRY AGAP 11.7 10.0 - 20.0 03/13/2011 Normal [facility] CHEMISTRY Chloride Lvl 104.0 95 - 109 03/13/2011 Normal [facility] CHEMISTRY Sodium Lvl 140.0 135 - 145 03/13/2011 Normal [facility] CHEMISTRY Creatinine Lvl 1.3 0.5 - 1.4 03/13/2011 Normal [facility] CHEMISTRY Potassium Lvl 4.7 3.5 - 5.1 03/13/2011 Normal [facility] CHEMISTRY Calcium Lvl 9.0 8.5 - 10.5 03/13/2011 Normal [facility] CHEMISTRY CO2 29.0 24 - 32 03/13/2011 Normal [facility] CHEMISTRY BUN 17.0 7 - 22 03/13/2011 Normal [facility] CHEMISTRY Glucose Lvl 108.0 03/13/2011 NA <sup>1</sup>Interpretive Data: Reference Ranges : 0 - 7 days : 41 - 90 mg/dL 7 days - 150 yrs : 70 - 99 mg/dL (fasting), based on the clinical recommendations of the [employer]. [facility] HEMATOLOGY Hct 42.3 42.0 - 54.0 03/13/2011 Normal [facility] HEMATOLOGY Hgb 14.8 14.0 - 18.0 03/13/2011 Normal [facility] Pathology Reports No Data Provided for This Section Diagnostic Reports Report Value Date Source Spine lumbar wo contrast MRI E XAM: MRI LUMBAR SPINE WITHOUT CONTRAST DATE: 07/24/2017 8:15 AM [employer] . ORDERING PHYSICIAN: Kranthi Mcgill MD CLINICAL [...] mm. Lateral recesses are narrowed. There is nutk-nb-xizrdyvm the exiting L2 nerve root. Narrowing of [...] IMPRESSION: 1. L4-L5 spinal stenosis with mild crowd ing of the cauda equina 2. Moderate to severe neural foramen brandyn rowing on the right at L4-L5 and L5-S1 07/24/2017 [facility] Drain/Inj Major Joint/Bursa US EXAM: ULTRASOUND-GUIDED THERAPEUTIC RIGHT BICEPS TENDON SHEATH INJECTION EXAM: ULTRASOUND-GUIDED RIGHT ACROMIOCLAVICULAR JOINT INJECTION DATE: 07/09/2016 12:44 PM [employer] INDICATION: right bicep tear COMPARISON: None TECHNIQUE: [...] procedure hayden components. IMPRESSION: 1. Technically successful ultrasound-rashawn ded therapeutic injection of the right biceps tendon. 2. Technically successful ultrasound-rashawn ded therapeutic injection of the right AC joint. 07/09/2016 [facility] [place] Drain/Inj Major Joint/Bursa US EXAM: ULTRASOUND-GUIDED THERAPEUTIC RIGHT BICEPS TENDON SHEATH INJECTION EXAM: ULTRASOUND-GUIDED RIGHT ACROMIOCLAVICULAR JOINT INJECTION DATE: 07/09/2016 12:44 PM [employer] INDICATION: right bicep tear COMPARISON: None TECHNIQUE: [...] procedure hayden components. IMPRESSION: 1. Technically successful ultrasound-rashawn ded therapeutic injection of the right biceps tendon. 2. Technically successful ultrasound-rashawn ded therapeutic injection of the right AC joint. 07/09/2016 [facility] Shoulder w contrast MRI EXAM: MR ARTHROGRAM RIGHT SHOULDER DATE: 04/10/2016 8:53 AM [employer] INDICATION: biceps tendinitis COMPARISON: None TECHNIQUE: Fluoroscopy-guided [...] FINDINGS: None. IMPRESSION: 1. Supraspinatus tendinosis with full-th ickness tear of a 16 mm segment of the anterior supraspinatus tendon. Less than a centimeter of maximal tendon retraction. Rotator cuff muscle bulk is normal. 2. Degenerative tearing of the biceps-la bral complex. Anterior labrum is diffusely diminutive. 3. Mild intra-articular biceps tendinosi s. 4. Moderate degenerative changes of AC j oint with fluid in the AC joint. 04/10/2016 JOHN Gandhi Inj Arthrogram Shoulder Unilat DX EXAM: FLUOROSCOPY- GUIDED RIGHT SHOULDER INJECTION FOR MR ARTHROGRAM DATE: 04/10/2016 8:19 AM [employer] INDICATION: M75.21 Bicipital tendinitis, right shoulder COMPARISON: [...] mg of Kenalog was injected into the r ight shoulder joint. 6 mL of a mixture of 0.1 mL Omniscan wit h 10 mL of saline, and 4 mL [...] right shoulder injection for MR arthrogram. 04/10/2016 GUANA[facility]IT[facility] Gandhi Spine lumbar wo contrast MRI M RI LUMBAR SPINE WITHOUT CONTRAST 11/24/2012 CLINICAL: Back [...] anterolisthesis present. 3. L3-L4 moderate left foraminal stenosi s due to degenerative changes with mild impingement of the left L3 exiting nerve root sleeve. Postsurgical changes without central canal stenosis. 4. L4-L5 moderate to severe central samir l stenosis, severe right foraminal stenosis, and moderate left foraminal stenosis. Impingement of the bilateral L5 descending nerve roots present due to significant lateral recess stenosis. 5. L5-S1 mild central canal stenosis and mild bilateral foraminal stenosis. Minimal impingement of the bilateral S1 proximal nerve root sleeves suspected. 11/24/2012 [facility] Consultation Notes No Data Provided for This Section Discharge Summaries No Data Provided for This Section History and Physicals No Data Provided for This Section Vital Signs Vital Sign Value Date Comments Source Height 172.72 cm 01/29/2020 [facility] Weight 102.017 01/29/2020 [facility] BMI Calculated 34.2 01/29/2020 [facility] Systolic (mm Hg) 133.0 03/19/2011 [facility] Rate 18.0 03/19/2011 [facility] Diastolic (mm Hg) 84.0 03/19/2011 [facility] Systolic (mm Hg) 129.0 03/19/2011 [facility] Respitory Rate 5.0 03/19/2011 [facility] Diastolic (mm Hg) 89.0 03/19/2011 [facility] Diastolic (mm Hg) 76.0 03/19/2011 [facility] Systolic (mm Hg) 127.0 03/19/2011 [facility] Respitory Rate 10.0 03/19/2011 [facility] Heart Rate 70.0 03/19/2011 [facility] Temperature Oral (F) 98.4 F 03/13/2011 [facility] Heart Rate 72.0 03/13/2011 [facility] Weight 97.727 03/13/2011 [facility] Height 175.26 cm 03/13/2011 [facility] Encounters Location Location Details Encounter Type Encounter Number Reason For Visit Attending Provider ADM Date DC Date Status Source [facility] DS [id number] THUY GEOFFREY 03/19/2011 03/19/2011 Discharged [facility] AUDIT [id number] 11/16/2012 11/16/2012 [facility] OD [id number] 724.2 - LUMBAGO 724.4 - LUMBOSACRAL DUY DON 11/24/2012 Active [facility] AUDIT [id number] 12/03/2012 12/03/2012 [facility] AUDIT [id number] 03/31/2013 03/31/2013 [facility] [place] [facility] [id number] 02 Ruel Burton 04/10/2016 04/11/2016 IVETTED Hiram [facility] [place] [facility] [id number] 03 Kranthi Mcgill 07/09/2016 07/10/2016 GUANAKITO Gandhi [facility] [place] [facility] [id number] 04 Kranthi Mcgill 07/24/2017 07/25/2017 [facility] Phone Message [id number] 11/20/1911/22/2019 [facility] Outpatient [id number] Tanner Komonika 12/11/2019 [facility] [id number] MED_ASST VISIT 01/26/2020 Active [facility] [place] Out[facility] [id number] Tanner Komonika 01/29/2020 Active Lesly Gandhi [facility] [place] Outpatient [id number] Tanner Shawtorito 01/29/2020 01/30/2020 [facility] Outpatient [id number] Tanner Domínguez 02/27/2020 Active [facility] Procedures Procedure Code Date Perfomer Comments Source Cataract surgery [id number] 05/17/2018 [facility] DRAIN/INJ JOINT/BURSA W/ 07/09/2016 GUANAKITO Gandhi Injection procedure for shoulder arthrog cydney or enhanced CT/MRI shoulder arthrography 25240 04/10/2016 [facility]UA[facility]IT[facility] Gandhi Cholecystectomy [id number] 05/17/1999 [facility] Assessment and Plan No Data Provided for This Section Plan of Care Plan of Care Date Source [U] MRI SPINE LUMBAR WO CONTRAST [id number] 11/22/2012 Routine 03/31/2013 [facility] [U] MRI SPINE LUMBAR WO CONTRAST 11/22/2012 Routine 12/03/2012 [facility] [U] MRI SPINE CERVICAL WO CONTRAST 11/16/2012 Routine 11/16/2012 [facility] Social History Social History Date Source Social History TypeResponse Smoking Status Never smoker; Exposure to Tobacco Smoke None; Cigarette Smoking Last 365 Days No; Reg Smoking Cessation Counseling No entered on: 01/29/20 01/29/2020 [facility] No data available for this section 07/25/2017 [facility] [place] No data available for this section 07/10/2016 GUANAKITO Gandhi Never A Smoker (Active) Being A Social Drinker (Active) 03/31/2013 [facility] Family History Value Date S ource Family history of Congestive Heart Failu re (Active) Family history of Asthma (V17.5); (Active) 03/31/2013 [facility] Family history of Congestive Heart Failu re (Active) Family history of Asthma (V17.5); (Active) 12/03/2012 [facility] Family history of Congestive Heart Failu re (Active) Family history of Asthma (V17.5); (Active) 11/16/2012 [facility] Advance Directives Order Name Results Value Date Source Advance Directives Advance Dir ectives No Advance Directives available. 03/31/2013 [facility] Advance Directives Advance Dir ectives No Advance Directives available. 12/03/2012 [facility] Advance Directives Advance Dir ectives No Advance Directives available. 11/16/2012 [facility] Functional Status No Data Provided for This Section
[2020-02-19 14:39] LABS: BASOPHILS # (AUTO) 0.1 (0.0-0.1); BASOPHILS % 0.7 % (0.0-1.0); EOSINOPHILS % 0.5 % (0.0-6.0); HEMATOCRIT 52.1 % (38.2-49.6); HEMOGLOBIN 17.4 g/dL (14.0-18.0); LYMPHOCYTES # (AUTO) 1.3 (1.0-3.2); LYMPHOCYTES % 16.7 % (18.0-39.1); MEAN CORPUSCULAR HEMOGLOBIN 31.6 pg (28-32); MEAN CORPUSCULAR HGB CONC 33.4 g/dL (31-35); MEAN CORPUSCULAR VOLUME 94.6 fL (81-99); MONOCYTES # (AUTO) 0.8 (0.2-0.8); MONOCYTES % 10.2 % (4.4-11.3); NEUTROPHILS # (AUTO) 5.8 (2.1-6.9); NEUTROPHILS % 71.5 % (38.7-80.0); PLATELET COUNT 190 x10e3/uL (140-360); RED BLOOD COUNT 5.51 x10e6/uL (4.3-5.7); RED CELL DISTRIBUTION WIDTH 13.6 % (11.7-14.4)
[2020-02-19 14:56] LABS: ALBUMIN 4.8 g/dL (3.5-5.0); ALBUMIN/GLOBULIN RATIO 1.7 (0.8-2.0); CALCIUM 9.6 mg/dL (8.4-10.2); CREATININE, SERUM 1.39 mg/dL (0.72-1.25)
--- NOTE | 2020-02-19 15:03 | Diagnostic Imaging Report ---
Exam: Head CT without contrast History: Hypertension, dizziness Comparison studies: None Technique: Axial images were obtained from the skull base to the vertex. Coronal and sagittal images reconstructed from the axial data. Dose modulation, iterative reconstruction, and/or weight based adjustment of the mA/kV was utilized to reduce the radiation dose to as low as reasonably achievable. Radiation dose: Total DLP: 921.4 mGy*cm. Estimated effective dose: DLP x 0.015 Intravenous contrast: None Findings: Scalp: No abnormalities. Bones: No fractures, blastic or lytic lesions. Brain sulci: Mildly prominent. Ventricles: Normal in size and configuration. No hydrocephalus. Extra-axial spaces: No masses, no fluid collection. Parenchyma: No mass, acute hemorrhage or acute cortical vascular insults. A few scattered hypodensities in the supratentorial white matter are nonspecific but most compatible with chronic small vessel ischemic changes. Sellar/suprasellar region: No abnormalities. Craniocervical junction: Patent foramen magnum. No Chiari one malformation. Incidental findings: Atherosclerotic calcifications in the carotid siphons. Right intraocular lens replacement. IMPRESSION: No acute intracranial abnormalities. Chronic findings: 1. Mild age-related generalized parenchymal volume loss. 2. Mild chronic microvascular ischemic changes. Signed by: Dr. Alberto Lucas M.D. on 02/19/2020 3:00 PM
[2020-02-19] MEDS ORDERED: IOPAMIDOL 370 MG/ML 200 ML INFUS..BTL INJ ONE (15:19)
[2020-02-19] MEDS ORDERED: SODIUM CHLORIDE 0.9% 50ML 50 ML ONE (15:19)
[2020-02-19] MEDS ORDERED: HYDRALAZINE HCL 20 MG/ML VIAL IV STA (15:29)
[2020-02-19] MEDS ORDERED: LABETALOL HCL 5 MG/ML 20ML VIAL IV STA (15:38)
--- NOTE | 2020-02-19 16:43 | Emergency Department Note ---
History of Present Illnes History of Present Illness Chief Complaint: Hypertension History of Present Illness This is a 69 year old male Chief Complaint Comment PATIENT IN FROM HOME WITH COMPLAINTS OF HIGH BLOOD PRESSURE STARTING TODAY; STATES HE FELT FLUSHED AND DIZZY THIS MORNING, BUT THAT HAS RESOLVED NOW. PATIENT BLOOD PRESSURE IS 163/114, DENIES PAIN, ALERT AND ORIENTED, RESP EVEN AND NONLABORED . Historian: Patient Arrival Mode: Car Onset (how long ago): day(s) (2) Location: HEADche Quality: dull Radiation: Denies non-radiation, Denies back, Denies neck, Denies extremity, Denies abdomen, Denies periumbilical, Denies flank, Denies proximal, Denies distal, Denies other Severity: mild Onset quality: gradual Duration (how long): day(s) (2) Progression: waxing and waning Chronicity: new Context: Denies recent illness, Denies recent surgery, Denies recent immobilization, Denies recent travel, Denies trauma/injury, Denies new medications, Denies hx of DVT/PE, Denies non-compliance w/ medications, Denies other Relieving factors: none Exacerbating factors: none Associated symptoms: Denies denies other symptoms, Denies confusion, Denies chest pain, Denies cough, Denies diaphoresis, Denies fever/chills, Denies headaches, Denies loss of appetite, Denies malaise, Denies nausea/vomiting, Denies rash, Denies seizure, Denies shortness of breath, Denies syncope, Denies weakness, Denies other Past Medical/Family History Physician Review I have reviewed the patient's past medical and family history. Any updates have been documented here. Past Medical History Recent Fever: No Clinical Suspicion of Infectio: No New/Unexplained Change in Ment: No Past Medical History: Hypertension, GERD, Hyperlipedemia Past Surgical History: Cholecysctectomy Social History Smoking Cessation: Never Smoker Counseling Performed: No Alcohol Use: None Any Illegal Drug Use: No Other Any Pre-Existing Lines (PICC,: No Review of Systems Review of Systems Constitutional: Reports no symptoms EENTM: Reports no symptoms Cardiovascular: Reports no symptoms Respiratory: Reports no symptoms Gastrointestinal: Reports no symptoms Genitourinary: Reports no symptoms Musculoskeletal: Reports no symptoms Integumentary: Reports no symptoms Neurological: Reports as per HPI Psychological: Reports no symptoms Endocrine: Reports no symptoms Hematological/Lymphatic: Reports no symptoms Physical Exam Related Data Allergies: Coded Allergies: No Known Allergies (Verified , 01/20/10) Triage Vital Signs Vital Signs Date Time Temp Pulse Resp B/P (MAP) Pulse Ox O2 Delivery O2 Flow Rate FiO2 02/19/20 13:57 98.1 94 18 157/122 96 Room Air Vital signs reviewed: Yes Physical Exam CONSTITUTIONAL Constitutional: Present well-developed, Present well-nourished HENT HENT: Present normocephalic, Present atraumatic, Present oropharynx clear/moist, Present nose normal HENT L/R: Present left ext ear normal, Present right ext ear normal EYES Eyes: Reports PERRL, Reports conjunctivae normal NECK Neck: Present ROM normal PULMONARY Pulmonary: Present effort normal, Present breath sounds normal CARDIOVASCULAR Cardiovascular: Present regular rhythm, Present heart sounds normal, Present capillary refill normal, Present normal rate GASTROINTESTINAL Abdominal: Present soft, Present nontender, Present bowel sounds normal GENITOURINARY Genitourinary: Present exam deferred SKIN Skin: Present warm, Present dry MUSCULOSKELETAL Musculoskeletal: Present ROM normal NEUROLOGICAL Neurological: Present alert, Present oriented x 3, Present no gross motor or sensory deficits PSYCHOLOGICAL Psychological: Present mood/affect normal, Present judgement normal Results Laboratory Result Diagram: 02/19/20 1409 02/19/20 1409 Laboratory Laboratory Tests Test 02/19/20 14:09 White Blood Count 8.04 x10e3/uL (4.8-10.8) Red Blood Count 5.51 x10e6/uL (4.3-5.7) Hemoglobin 17.4 g/dL (14.0-18.0) Hematocrit 52.1 % (38.2-49.6) Mean Corpuscular Volume 94.6 fL (81-99) Mean Corpuscular Hemoglobin 31.6 pg (28-32) Mean Corpuscular Hemoglobin Concent 33.4 g/dL (31-35) Red Cell Distribution Width 13.6 % (11.7-14.4) Platelet Count 190 x10e3/uL (140-360) Neutrophils (%) (Auto) 71.5 % (38.7-80.0) Lymphocytes (%) (Auto) 16.7 % (18.0-39.1) Monocytes (%) (Auto) 10.2 % (4.4-11.3) Eosinophils (%) (Auto) 0.5 % (0.0-6.0) Basophils (%) (Auto) 0.7 % (0.0-1.0) Neutrophils # (Auto) 5.8 (2.1-6.9) Lymphocytes # (Auto) 1.3 (1.0-3.2) Monocytes # (Auto) 0.8 (0.2-0.8) Eosinophils # (Auto) 0.0 (0.0-0.4) Basophils # (Auto) 0.1 (0.0-0.1) Absolute Immature Granulocyte (auto 0.03 x10e3/uL (0-0.1) Sodium Level 138 mmol/L (136-145) Potassium Level 4.0 mmol/L (3.5-5.1) Chloride Level 99 mmol/L (98-107) Carbon Dioxide Level 25 mmol/L (22-29) Anion Gap 18.0 mmol/L (8-16) Blood Urea Nitrogen 12 mg/dL (7-26) Creatinine 1.39 mg/dL (0.72-1.25) Estimat Glomerular Filtration Rate 51 ML/MIN (60-) BUN/Creatinine Ratio 9 (6-25) Glucose Level 95 mg/dL (74-118) Calcium Level 9.6 mg/dL (8.4-10.2) Total Bilirubin 1.1 mg/dL (0.2-1.2) Aspartate Amino Transf (AST/SGOT) 51 IU/L (5-34) Alanine Aminotransferase (ALT/SGPT) 51 IU/L (0-55) Alkaline Phosphatase 62 IU/L (40-150) Total Protein 7.7 g/dL (6.5-8.1) Albumin 4.8 g/dL (3.5-5.0) Globulin 2.9 g/dL (2.3-3.5) Albumin/Globulin Ratio 1.7 (0.8-2.0) Lab results reviewed: Yes Imaging Imaging results reviewed: Yes Procedures 12 Lead ECG Interpretation ECG Interpretation : ECG: ECG 1 Pompom Maker: Interpreted by ED physician Date: Feb 19, 2020 Time: 14:03 Rhythm: sinus rhythm Rate: normal BPM: 89 QRS axis: normal ST segments normal: Yes Critical Care Time Total Critical Care Time (min): 45 Critical care time exclusive o: separately billable procedures Critcal care necessary due to: other (bp) Critcal care time spent by me: examination of patient, obtaining hx from patient/surrogate, order/perform tx or interventions, order/review laboratory studies Assessment & Plan Medical Decision Making MDM htn crisis Reassessment Reassessment time: 16:41 Reassessment better Assessment & Plan Final Impression: (1) Hypertensive crisis Depart Disposition: ADMITTED Last Vital Signs Date Time Temp Pulse Resp B/P (MAP) Pulse Ox O2 Delivery O2 Flow Rate FiO2 02/19/20 16:31 97 16 151/99 100 Room Air 02/19/20 13:57 98.1 Home Meds Reported Medications Testosterone Cypionate (TESTOSTERONE CYPIONATE) 100 Mg/1 Ml Vial, 0.5 ML INJ WEEKLY 09/28/18 Sildenafil Citrate* (VIAGRA*) 50 Mg Tab, 100 MG PO PRN, TAB 09/28/18 Losartan/Hydrochlorothiazide (LOSARTAN-HCTZ 100-25 MG TAB) 1 Each Tablet, 1 TAB PO DAILY 09/28/18 Clonazepam (CLONAZEPAM) 1 Mg Tablet, 2 MG PO PRN, TAB 09/28/18 Pantoprazole Sodium* (PROTONIX) 40 Mg Tablet.dr, 40 MG PO DAILY, TAB 09/28/18 Metoclopramide Hcl (REGLAN) 5 Mg Tablet, 5 MG PO TID 09/28/18 Niacin (NIACIN) 500 Mg Tabsr, 500 MG PO HS, #30 TAB 09/28/18 Medications in the ED Sodium Chloride 50 ml @ ud STK-MED ONCE .ROUTE ; Start 02/19/20 at 15:19; Stop 02/19/20 at 15:12; Status DC Iopamidol 74,000 mg STK-MED ONCE INJ ; Start 02/19/20 at 15:19; Stop 02/19/20 at 15:12; Status DC Hydralazine HCl 10 mg NOW STAT IV ; Start 02/19/20 at 15:29; Stop 02/19/20 at 15:58; Status DC Labetalol HCl 10 mg NOW STAT IV ; Start 02/19/20 at 15:38; Stop 02/19/20 at 15:54; Status DC CAYETANO GOLDSTEIN MD Feb 19, 2020 16:43
[2020-02-19] MEDS ORDERED: ONDANSETRON HCL INJ 2MG/ML 2ML 2 MG/ML VIAL IV PRN (16:45)
[2020-02-19] MEDS ORDERED: LORAZEPAM INJ 2 MG/ML VIAL ONE (16:57)
[2020-02-19] MEDS ORDERED: SODIUM CHLORIDE 0.9% 1000ML 1,000 ML ONE (16:58)
--- OUTSIDE RECORDS SUMMARY | 2020-02-19 16:59 | XMS REPORT | Continuity of Care Document ---
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 Phone [employer] Unavailable Un available Problems Problem Status Onset Date Classification Date Reported Comments Source Radiculopathy, lumbar region 07/30/2017 10/31/2017 [facility] [place] M75.21 - "BICIPITAL TENDINITIS, RIGHT SH Active 03/27/2016 [facility] [place] 724.2 - LUMBAGO 724.4 - LUMBOSACRAL DUY Active 11/22/2012 [facility] [place] ANAL FISSURE 565.0 565.1 455.2/CPT 12155 92881 Active 02/23/2011 [facility] Lower Back Pain Active 03/31/2013 [facility] Lumbar Radiculopathy Active 03/31/2013 [facility] Spinal stenosis, lumbar region without n eurogenic claudication 10/31/2017 [facility] [place] 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 acetaminophen-hydrocodone 325 mg-5 mg oral tablet 1 tab, Route: PO, Drug Form: TAB, Q4H, PRN Pain Score 1-3, Start date: 03/19/11 12:41:00, Duration: 30 day, Stop date: 04/18/11 12:40:00 PO No Longer Active Shawn 03/19/2011 [facility] ondansetron 4 mg, 2 mL, Route: IVP, Drug form: INJ, ONCE, PRN Nausea & Vomiting, Start date: 03/19/11 12:41:00 IVP No Longer Active Shwan 03/19/2011 [facility] naloxone 0.04 mg, 0.1 mL, Rout e: IVP, Drug form: INJ, Q2MIN, PRN Narcotic Reversal, Start date: 03/19/11 12:41:00, Duration: 8 doses or times, Stop date: Limited # of times IVP No Longer Active Shawn 03/19/2011 [facility] ketorolac 30 mg, 1 mL, Route: IVP, Drug form: INJ, ONCE, PRN Breakthrough Pain, Start date: 03/19/11 12:41:00, Duration: 1 doses or times, Stop date: Limited # of times IVP No Longer Active Shawn 03/19/2011 [facility] hydromorphone 0.5 mg, 0.5 mL, Route: IVP, Drug form: SOLN, Q5Min, PRN Pain Score 4-6, Start date: 03/19/11 12:41:00, Duration: 5 doses or times, Stop date: Limited # of times IVP No Longer Active Shawn 03/19/2011 [facility] meperidine 12.5 mg, 0.25 mL, R oute: IVP, Drug form: INJ, Q30Min, PRN Other -See Comment, For shivering, Start date: 03/19/11 12:41:00, Duration: 2 doses or times, Stop date: Limited # of times IVP No Longer Active Shawn 03/19/2011 [facility] flumazenil 0.2 mg, 2 mL, Route : IVP, Drug form: INJ, PRN, PRN Other -See Comment, Initial dose, Start date: 03/19/11 12:41:00, Duration: 5 doses or times, Stop date: Limited # of times IVP No Longer Active Shawn 03/19/2011 [facility] Toradol 10 mg oral tablet 10 m g, PO, Q6H, PRN, 20 btl, Pain, Substitution Allowed, TAB PO Active [place] yiannis 03/19/2011 [facility] Vicodin 5/500 oral tablet 1 ta b, PO, Q4H, PRN, 40 btl, for pain, Substitution Allowed, Maintenance, TAB PO Active Voloyiannis 03/19/2011 [facility] lidocaine 1% 0.5 mL, Route: FIELDS B-Q, Drug Form: INJ, ONCALL, Start date: 03/19/11 11:00:00, Duration: 1 doses or times SUB-Q No Longer Active Shawn 03/19/2011 [facility] Lactated Ringers Injection IV 1,000 mL 1,000 mL, Rate: 25 ml/hr, Infuse over: 40 hr, Route: IV, Total Volume: 1,000, Start date: 03/19/11 10:32:00, Duration: 30 day, Stop date: 04/18/11 10:31:00 IV No Longer Active Shawn 03/19/2011 [facility] Lactated Ringers IV 500 mL 500 mL, Rate: 75 ml/hr, Infuse over: 6.7 hr, Route: IV, Total Volume: 500, Start date: 03/19/11 10:32:00, Duration: 30 day, Stop date: 04/18/11 10:31:00 IV No Longer Active Voloyiannis 03/19/2011 [facility] onabotulinumtoxinA 100 unit, R oute: IM, Drug form: INJ, ONCE, Start date: 03/19/11 9:00:00, Stop date: 03/19/11 9:00:00 [facility] doxycycline Substitution Allow ed Active 03/13/2011 [facility] Ativan 0.5 mg oral tablet Subs titution Allowed Active 03/13/2011 [facility] Livalo 1 mg oral tablet Substi tution Allowed Active 03/13/2011 [facility] Bentyl 20 mg, 1 cap, PO, QID, PRN, 40 cap, Abdominal cramping, Substitution Allowed PO Active 03/13/2011 [facility] Dexilant 60 mg oral delayed release capsule Substitution Allowed Active 03/13/2011 [facility] Doxycycline Hyclate 100 MG Oral Capsule (Active) Active [facility] Livalo 2 MG Oral Tablet (Acti ve) Active [facility] LORazepam 0.5 MG Oral Tablet (Active) Active [facility] Dexilant CPDR (Active) Active [facility] Allergies, Adverse Reactions, Alerts Substance Category Reaction Severity Reaction type Status Date Reported Comments Source No Known Drug Allergies drug a llergy drug aller gy Active [facility] No Known Medication Allergies Assertion Drug aller gy Medical Group Immunizations No Data Provided for This Section Results Order Name Results Value Reference Range Date Interpretation Comments Source CHEMISTRY AGAP 11.7 10.0 - 20.0 03/13/2011 Normal [facility] CHEMISTRY Chloride Lvl 104.0 95 - 109 03/13/2011 Normal [facility] CHEMISTRY Sodium Lvl 140.0 135 - 145 03/13/2011 Normal [facility] CHEMISTRY Creatinine Lvl 1.3 0.5 - 1.4 03/13/2011 Normal [facility] CHEMISTRY Potassium Lvl 4.7 3.5 - 5.1 03/13/2011 Normal [facility] CHEMISTRY Calcium Lvl 9.0 8.5 - 10.5 03/13/2011 Normal [facility] CHEMISTRY CO2 29.0 24 - 32 03/13/2011 Normal [facility] CHEMISTRY BUN 17.0 7 - 22 03/13/2011 Normal [facility] CHEMISTRY Glucose Lvl 108.0 03/13/2011 NA <sup>1</sup>Interpretive Data: Reference Ranges : 0 - 7 days : 41 - 90 mg/dL 7 days - 150 yrs : 70 - 99 mg/dL (fasting), based on the clinical recommendations of the [place] [employer]. [facility] HEMATOLOGY Hct 42.3 42.0 - 54.0 03/13/2011 Normal [facility] HEMATOLOGY Hgb 14.8 14.0 - 18.0 03/13/2011 Normal [facility] Pathology Reports No Data Provided for This Section Diagnostic Reports Report Value Date Source Spine lumbar wo contrast MRI E XAM: MRI LUMBAR SPINE WITHOUT CONTRAST DATE: 07/24/2017 8:15 AM HORTICULTURALIST . ORDERING PHYSICIAN: Kranthi Mcgill MD CLINICAL [...] mm. Lateral recesses are narrowed. There is [id number] the exiting L2 nerve root. Narrowing of [...] right at L4-L5 and L5-S1 07/24/2017 [facility] [place] Drain/Inj Major Joint/Bursa US EXAM: ULTRASOUND-GUIDED THERAPEUTIC RIGHT BICEPS TENDON SHEATH INJECTION EXAM: ULTRASOUND-GUIDED RIGHT ACROMIOCLAVICULAR JOINT INJECTION DATE: 07/09/2016 12:44 PM HORTICULTURALIST INDICATION: right bicep tear COMPARISON: None TECHNIQUE: [...] the right AC joint. 07/09/2016 [facility] [place] Drain/Inj Major Joint/Bursa US EXAM: ULTRASOUND-GUIDED THERAPEUTIC RIGHT BICEPS TENDON SHEATH INJECTION EXAM: ULTRASOUND-GUIDED RIGHT ACROMIOCLAVICULAR JOINT INJECTION DATE: 07/09/2016 12:44 PM HORTICULTURALIST INDICATION: right bicep tear COMPARISON: None TECHNIQUE: [...] ARTHROGRAM RIGHT SHOULDER DATE: 04/10/2016 8:53 AM HORTICULTURALIST INDICATION: biceps tendinitis COMPARISON: None TECHNIQUE: Fluoroscopy-guided [...] FOR MR ARTHROGRAM DATE: 04/10/2016 8:19 AM HORTICULTURALIST INDICATION: M75.21 Bicipital tendinitis, right shoulder COMPARISON: [...] 133.0 03/19/2011 [facility] Rate 18.0 03/19/2011 [facility] Diastolic (mm Hg) 84.0 03/19/2011 [facility] Systolic (mm Hg) 129.0 03/19/2011 [facility] Respitory Rate 5.0 03/19/2011 [facility] Diastolic (mm Hg) 89.0 03/19/2011 [facility] Diastolic (mm Hg) 76.0 03/19/2011 [facility] Systolic (mm Hg) 127.0 03/19/2011 [facility] Respitory Rate 10.0 03/19/2011 [facility] Heart Rate 70.0 03/19/2011 [facility] Temperature Oral (F) 98.4 F 03/13/2011 [facility] Heart Rate 72.0 03/13/2011 [facility] Weight 97.727 03/13/2011 [facility] Height 175.26 cm 03/13/2011 [facility] Encounters Location Location Details Encounter Type Encounter Number Reason For Visit Attending Provider ADM Date DC Date Status Source [facility] DS [id number] THUY GEOFFREY 03/19/2011 03/19/2011 Discharged [facility] AUDIT [id number] 11/16/2012 11/16/2012 [facility] OD [id number] 724.2 - LUMBAGO 724.4 - LUMBOSACRAL DUY DON 11/24/2012 Active [facility] [place] AUDIT [id number] 12/03/2012 12/03/2012 [facility] AUDIT [id number] 03/31/2013 03/31/2013 [facility] [place] [facility] [id number] Ruel Burton 04/10/2016 04/11/2016 IVETTED [facility] [id number] Kranthi Mcgill 07/09/2016 07/10/2016 GUANAKITO Gandhi [facility] Outpatient [facility] - [facility] [id number] Kranthi Mcgill 07/24/2017 07/25/2017 [facility] [place] [facility] Phone Message [id number] 11/20/1911/22/2019 [facility] Outpatient [id number] Tanner Komonika 12/11/2019 [facility] [id number] MED_ASST VISIT 01/26/[address] [facility] [place] Outpatient [id number] Tanner Komonika 01/29/2020 Active Lesly Gandhi [facility] [place] [facility] [id number] Tanner Shawtorito 01/29/2020 01/30/2020 [facility] Outpatient [id number] Tanner Domínguez 02/27/2020 Active [facility] Procedures Procedure Code Date Perfomer Comments Source Cataract surgery [id number] 05/17/2018 [facility] Group DRAIN/INJ JOINT/BURSA W/ 07/09/2016 GUANAKITO Gandhi Injection procedure for shoulder arthrog cydney or enhanced CT/MRI shoulder arthrography 25724 04/10/2016 GUANAKITO Gandhi Cholecystectomy [id number] 05/17/1999 [facility] Assessment and Plan No Data Provided for This Section Plan of Care Plan of Care Date Source [U] MRI SPINE LUMBAR WO CONTRAST [id number] 0 11/22/2012 Routine 03/31/2013 [facility] [U] MRI SPINE LUMBAR WO CONTRAST 11/22/2012 Routine 12/03/2012 [facility] [U] MRI SPINE CERVICAL WO CONTRAST 11/16/2012 Routine 11/16/2012 [facility] Social History Social History Date Source [...] (Active) Being A Social Drinker (Active) 03/31/2013 [facility] Family History Value Date S ource Family history of Congestive Heart Failu re (Active) Family history of Asthma (V17.5); (Active) 03/31/2013 [facility] Family history of Congestive Heart Failu re (Active) Family history of Asthma (V17.5); (Active) 12/03/2012 [facility] Family history of Congestive Heart Failu re (Active) Family history of Asthma (V17.5); (Active) 11/16/2012 [facility] Advance Directives Order Name Results Value Date Source Advance Directives Advance Dir ectives No Advance Directives available. 03/31/2013 [facility] Advance Directives Advance Dir ectives No Advance Directives available. 12/03/2012 [facility] Advance Directives Advance Dir ectives No Advance Directives available. 11/16/2012 [facility] Functional Status No Data Provided for This Section
--- OUTSIDE RECORDS SUMMARY | 2020-02-19 16:59 | XMS REPORT | Continuity of Care Document ---
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 Name Role Phone CAYETANO GOLDSTEIN Attphys Unavailable Valeriy Domínguez Attphys Ector Mcgill Attphys Kate [...] 724.4 - LUMBOSACRAL DUY Active 11/22/2012 [facility] [place] Diagnosis Active 2012-11-22 00:01:00 2012-11-24 07:33:00 Ibrahima Gandhi ANAL FISSURE 565.0 565.1 455.2/CPT 64225 61013 ANAL FISSURE 565.0 565.1 455.2/CPT 60545 76421 Active 02/23/2011 [facility] Active 2011-02-23 00:00:00 2011-03-19 09:42:00 Lesly Gandhi Spinal stenosis, lumbar region without neurogenic ryan dication Spinal stenosis, lumbar region without neurogenic claudication 10/31/2017 JOHN [facility] [place] Problem 2017-10-31 11:25:32 Lesly Gandhi Cataract (disorder) Georgie ract (disorder) Resolved Problem 02/01/2020 [facility] Problem Resolved 2020-02-01 00:15:22 Lesly Gandhi Hypertensive disorder, systemic arterial (disorder) Hypertensive disorder, systemic arterial (disorder) Resolved Problem 02/01/2020 [facility] Problem Resolved 2020-02-01 00:15:22 Lesly Guerreroann Lower Back Pain [facility] Back Pain Active 03/31/2013 [facility] Problem Active 2013-03-31 18:48:59 M emomicaela Guerreroann Lumbar Radiculopathy Lumb ar Radiculopathy Active 03/31/2013 [facility] Problem Active 2013-03-31 18:48:59 Lesly Guerreroann 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) 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) Active Problem 02/01/2020 [facility] Problem Active 2020-02-01 00: 15:22 Lesly Gandhi Impotence (disorder) Impo tence (disorder) Active Problem 02/01/2020 [facility] Problem Active 2020-02-01 00:15:22 Lesly Gandhi Simple obesity (disorder) Simp le obesity (disorder) Active Problem 02/01/2020 [facility] Problem Active 2020-02-01 00:15:22 Lesly Gandhi Radiculopathy, lumbar region R adiculopathy, lumbar region 07/30/2017 10/31/2017 [facility] [place] Problem 201 12-18-15 04:44:51 2017-10-31 11:25:32 2017-10-31 11:25:32 Lesly Gandhi Allergies, Adverse Reactions, Alerts Allergy Name Allergy Type Status Severity Reaction(s) Onset Date Inacti ve Date Treating Clinician Comments Source No Known Drug Allergies No Known Drug Allergies Active [facility] [place] No Known Medication Allergies No Known Medication Allergies Active Lesly Gandhi Family History Family Member Diagnosis Comments Start Date Stop Date Source Unknown Family Member Family History 2012-11-16 22:31:45 2 22:31:45 Lesly Gandhi Social History Social Habit Start Date Stop Date Quantity Comments Source Social History 2013-03-31 18:48:59 2013-03-31 18:48:59 Lesly Gnadhi Smoking Status Start Date Stop Date Source [...] Dexilant CPDR 2013-03-31 18:48:59 Yes (Acti ve) Lesly Gandhi fentanyl 2011-03-19 17:41:00 No Cheryl T Shawn [...] Duration: 30 day, Stop date: 04/18/11 12:40:00 Lesly Gandhi ondansetron 2011-03-19 17:41:00 No Cheryl T Shawn 4 mg, 2 mL, Route: IVP, Drug form: INJ, ONCE, PRN Nausea & Vomiting, Start date: 03/19/11 12:41:00 Lesly Gandhi naloxone 2011-03-19 17:41:00 No Cheryl T Shawn 0.04 mg, 0.1 mL, Route: IVP, Drug form: INJ, Q2MIN, PRN Narcotic Reversal, Start date: 03/19/11 12:41:00, Duration: 8 doses or times, Stop date: Limited # of times Lesly Gandhi ketorolac 2011-03-19 17:41:00 No Cheryl T Shawn 30 mg, 1 mL, Route: IVP, Drug form: INJ, ONCE, PRN Breakthrough Pain, Start date: 03/19/11 12:41:00, Duration: 1 doses or times, Stop date: Limited # of times Lesly Gandhi hydromorphone 2011-03-19 17:41:00 No Cheryl T Shawn [...] PRN, 20 btl, Pain, Substitution Allowed, TAB Lesly Gandhi Vicodin 5/500 oral tablet 2011-03-19 17:02:39 Yes Th eodoros Voloyiannis 1 tab, PO, Q4H, PRN, 40 btl, for pain, Substitution Al lowed, Maintenance, TAB [facility] lid[facility]aine 1% 2011-03-19 16:00:00 No Kennedy Vu Shawn 0.5 mL, Route: SUB- Q, Drug Form: INJ, ONCALL, Start date: 03/19/11 11:00:00, Duration: 1 doses or times Lesly Gandhi Lactated Ringers Injection IV 1,000 mL 2011-03-19 15:32:00 No Kennedy Vu Shawn 1,000 mL, Rate: 25 ml/hr, Infuse over: 40 hr, Route: IV, Total Volume: 1,000, Start date: 03/19/11 10:32:00, Duration: 30 day, Stop date: 04/18/11 10:31:00 [facility] [place] Lactated Ringers IV 500 mL 2011-03-19 15:32:00 No T jarett Winn 500 mL, Rate: 75 ml/hr, Infuse over: 6.7 hr, Route: IV, Total Volume: 500, Start date: 03/19/11 10:32:00, Duration: 30 day, Stop date: 04/18/11 10:31:00 Lesly Gandhi onabotulinumtoxinA 2011-03-19 14:00:00 Yes Ranulfo salgadoyifortinois 100 unit, Route: IM, Drug form: INJ, [...] Gandhi BMI Calculated 2020-01-29 13:44:00 [facility] [place] Systolic (mm Hg) 2011-03-19 19:30:00 Jamie [facility] [place] Respitory Rate 2011-03-19 19:30:00 [facility] [place] Diastolic (mm Hg) 2011-03-19 19:30:00 [facility] [place] Systolic (mm Hg) 2011-03-19 19:00:00 Jamie [facility] [place] Respitory Rate 2011-03-19 19:00:00 [facility] [place] Diastolic (mm Hg) 2011-03-19 19:00:00 [facility] [place] Diastolic (mm Hg) 2011-03-19 18:45:00 [facility] [place] Systolic (mm Hg) 2011-03-19 18:45:00 Jamie [facility] [place] Respitory Rate 2011-03-19 18:45:00 Jyoti al [place] Heart Rate 2011-03-19 16:20:00 [facility] Temperature Oral (F) 2011-03-13 14:59:00 98.4 F [facility] Heart Rate 2011-03-13 14:59:00 [facility] [place] Weight 2011-03-13 14:34:00 [facility] Height 2011-03-13 14:34:00 175.26 cm [facility] Procedures Procedure Date / Time Performed Performing Clinician Rhiannon garcia Cataract surgery 2018-05-17 00:00:00 [facility] rmann DRAIN/INJ JOINT/BURSA W/ 2016-07-09 19:35:51 [facility] orial [place] Injection procedure for shoulder arthrog cydney or enhanced CT/MRI shoulder arthrography 2016-04-10 15:30:34 [facility] Ch[facility] 1999-05-17 00:00:00 [facility] magdaleno Plan of Care Planned Activity Planned Date Details Comments Source Future Scheduled Test 2013-03-31 18:48:59 Plan of Care [code = 1877 6-5] [facility] Future Scheduled Test 2012-12-03 16:26:17 Plan of Care [code = 1877 6-5] [facility] Future Scheduled Test 2012-11-16 22:31:45 Plan of Care [code = 1877 6-5] [facility] Encounters Start Date/Time End Date/Time Encounter Type Admission Type [facility] Care Department Encounter ID Source 2020-01-29 08:50:00 2020-01-29 23:59:59 Outpatient Tanner Domínguez [facility] [id number] 2019-11-20 11:03:05 2019-11-21 23:59:59 Outpatient [facility] [id number] 2017-07-24 07:56:00 2017-07-24 23:59:00 [facility] [id number] 2016-07-09 12:11:00 2016-07-09 23:59:00 Outpatient Kranthi Walters [facility] [id number] 2016-04-10 08:09:00 2016-04-10 23:59:00 Outpatient Ruel Burton [facility] [id number] 2013-03-31 12:48:59 2013-03-31 12:48:59 Outpatient ROMY ROMY [id number] 2012-12-03 11:26:39 2012-12-03 11:26:17 Outpatient MARK FLORES [id number] 2012-11-16 17:31:45 2012-11-16 17:31:45 Outpatient MARK ROMY [id number] Results Test Description Test Time Test Comments Results Result Comments Source CT BRAIN WO 2020-02-19 14:56:00 [facility] [address] [address] Patient Name: WILSON BLELA MR #: [id number] : 1950 Age/Sex: 69/M Req #: [id number] Adm Physician: Ordered by: CAYETANO GOLDSTEIN MD Report #: [id number] Location: ER Room/Bed: Procedure: [id number] CT/CT BRAIN WO Exam Date: 02/19/20 Exam Time: 1446 REPORT STATUS: Signed Exam: Head CT without contrast History: Hypertension, dizziness Comparison studies: None Technique: Axial images were obtained from the skull base to the vertex. Coronal and sagittal images reconstructed from the axial data. Dose modulation, iterative recons truction, and/or weight based adjustment of the mA/kV was utilized to reduce the radiation dose to as low as reasonably achievable. Radiation dose: Total DLP: 921.4 mGy*cm. Estimated effective dose: DLP x 0.015 Intravenous contrast: None Findings: Scalp: No abnormalities. Bones: No fractures, blastic or lytic lesions. Brain sulci: Mildly prominent. Ventricles: Normal in size and configuration. No hydrocephalus. Extra-axial spaces: No masses, no fluid collection. Parenchyma: No mass, acute hemorrhage or acute cortical vascular insults. A few scattered hypodensities in the supratentorial white matter are nonspecific but most compatible with chronic small vessel ischemic changes. Sellar/suprasellar region: No abnormalities. Craniocervical junction: Patent foramen magnum. No Chiari one malformation. Incidental findings: Atherosclerotic calcifications in the carotid siphons. Right intraocular lens replacement. IMPRESSION: No acute intracranial abnormalities. Chronic findings: 1. Mild age- related generalized parenchymal volume loss. 2. Mild chronic microvascular ischemic changes. Signed by: Dr. Lamar Green M.D. on 02/19/2020 3:00 PM Dictated By: LAMAR GREEN MD 99 Transcribed By: MOO on 02/19/201499 COPY TO: CAYETANO GOLDSTEIN MD CHEMISTRY 2011-03-13 15:25:00 11.7 [facility] [place] CHEMISTRY 2011-03-13 15:25:00 104.0 [facility] [place] CHEMISTRY 2011-03-13 15:25:00 140.0 [facility] [place] CHEMISTRY 2011-03-13 15:25:00 1.3 [facility] [place] CHEMISTRY 2011-03-13 15:25:00 4.7 [facility] [place] CHEMISTRY 2011-03-13 15:25:00 9.0 [facility] [place] CHEMISTRY 2011-03-13 15:25:00 29.0 [facility] [place] CHEMISTRY 2011-03-13 15:25:00 17.0 [facility] [place] CHEMISTRY 2011-03-13 15:25:00 108.0 [facility] [place] HEMATOLOGY 2011-03-13 15:25:00 42.3 [facility] [place] HEMATOLOGY 2011-03-13 15:25:00 14.8 [facility] [place] CHEST 2 VIEWS [place] [address] Patient Name: WILSON BELLA MR #: [id number] : 1950 Age/Sex: 66/M Req #: [id number] Adm Physician: Ordered by: CHERYL PEACE MD Report #: [id number] Location: [facility] Room/Bed: Procedure: [id number] DX/CHEST 2 VIEWS Exam Date: 01/20/17 Exam [...]
[2020-02-19] MEDS ORDERED: LORAZEPAM INJ 2 MG/ML VIAL IV ONE ×2 (17:00→17:30)
[2020-02-19] MEDS ORDERED: SODIUM CHLORIDE 0.9% 1000ML 1,000 ML IV ONE (17:00)
[2020-02-19] MEDS ORDERED: METOCLOPRAMIDE H5 MG (17:31)
[2020-02-19] MEDS ORDERED: ZOLPIDEM PO (17:31)
[2020-02-19] MEDS ORDERED: PANTOPRAZOLE SO20 MG PO (17:31)
[2020-02-19] MEDS ORDERED: TAMSULOSIN PO (17:31)
[2020-02-19] MEDS ORDERED: OLMESARTAN MEDO40 MG (17:31)
[2020-02-19] MEDS: METOPROLOL TARTRATE 50 MG TAB PO SCH (18:37)
--- NOTE | 2020-02-19 18:39 | NUR ---
DIVINE GOLDSTEIN FOR PT TO TAKE HIS PROTONIX 20MG PO.
[2020-02-19] MEDS ORDERED: MULTIVITAMINS- 12 INJECTION 10 ML, FOLIC ACID MDV 5 MG, THIAMINE HCL INJ 100 MG in SODI... IV ONE (20:00)
[2020-02-19] MEDS ORDERED: ZENPEP PO (20:00)
[2020-02-19] MEDS ORDERED: BENICAR20 MG PO (20:00)
[2020-02-19] MEDS ORDERED: HYDRALAZINE HCL 20 MG/ML VIAL IV PRN (20:45)
[2020-02-19] MEDS ORDERED: ACETAMINOPHEN 325 MG TAB PO PRN (20:45)
[2020-02-19 21:14] VITALS: BP 127/79
[2020-02-19 21:30] VITALS: BP 127/79
[2020-02-19] MEDS ORDERED: METOPROLOL TARTRATE INJ 1 MG/ML VIAL IV PRN (21:45)
[2020-02-19] MEDS: ZOLPIDEM TARTRATE 10 MG TAB PO PRN (22:20)
[2020-02-19] MEDS ORDERED: CLONAZEPAM 1 MG TAB PO PRN (22:30)
--- NOTE | 2020-02-19 23:30 | History and Physical ---
PRIMARY CARE PHYSICIAN: Zachariah Vasquez MD. 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 Les Marroquin for general needs. CHIEF COMPLAINT: High blood pressure. HISTORY OF PRESENT ILLNESS: The patient is a 69-year-old male who was admitted via the emergency department from home with complaints of hypertension, felt flushed and dizzy this morning while mowing his lawn, but now resolved. In the emergency department, his blood pressure was 163/114. The patient states at home his blood pressure was 216/139. He had taken Benicar the night prior, i.e., last night. He had Ativan in the emergency department. The patient states he had insomnia last night, was awake at 2:30 in the morning and started mowing his lawn about 7:30 in the morning. He also admits to having a panic attack in the emergency room. He is currently seen in room 107, relaxed in no acute distress. PAST MEDICAL HISTORY: Hypertension, gastroesophageal reflux disease, hyperlipidemia, anxiety, chronic prostatitis, and hypogonadism. PAST SURGICAL HISTORY: Cataract surgery, cholecystectomy at age 42, he had a L4-L5 laminectomy. FAMILY HISTORY: Mother and father were both smokers and had emphysema. Brother and sister both had NE. That same brother had coronary artery bypass graft surgery. SOCIAL HISTORY: The patient lives with his . 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 He denies any use of assistive device when ambulating. Denies prior use of tobacco or illicit drugs. He drinks Tequila at times. ALLERGIES: NO KNOWN ALLERGIES. HOME MEDICATIONS: Clonazepam 2 mg p.o. b.i.d. p.r.n. anxiety, Reglan 5 mg t.i.d., Olmesartan medoxomil (Benicar) 40 mg p.o. at bedtime, zolpidem 10 mg at bedtime p.r.n. insomnia, testosterone 100 mg injection weekly, Protonix 20 mg b.i.d., and Zenpep. REVIEW OF SYSTEMS: 14-point review of systems was completed and is essentially negative except; EYES: He wears contacts. GENITOURINARY: Difficulty urinating at times due to a chronic prostatitis. PSYCHIATRIC: Admits to insomnia and having anxiety. CARDIOVASCULAR: Palpitations at times. GASTROINTESTINAL: Last bowel movement was this morning. OBJECTIVE: VITAL SIGNS: Temperature 98.1, pulse 102, prior to that 115. During my encounter, heart rate was 87, blood pressure 127/79, respirations 22, and oxygen saturation 98%. GENERAL: Supine, in no acute distress. LUNGS: Clear to auscultation. Respiratory pattern even and unlabored. HEENT: EOMI. NECK: Supple. No lymphadenopathy, thyromegaly, or JVD. CARDIOVASCULAR: Regular rate and rhythm without murmur. Normal saline, banana bag infusing at 125 mL an hour. ABDOMEN: Bowel sounds positive. Soft and nontender. EXTREMITIES: No pitting edema. No clubbing, cyanosis, or signs of DVT. NEUROLOGIC: GCS 15. Nonfocal. LABORATORY DATA: WBCs 8.04, hemoglobin 17.4, hematocrit 52.1, and platelets 190,000. Sodium 138, potassium 4, chloride 99, CO2 of 25, anion gap 18, BUN 12, creatinine 1.39, estimated GFR 51, glucose 95, calcium 9.6, total bilirubin 1.1, AST 51, ALT 51, alkaline phosphatase 62, total protein 7.7, and albumin 4.8. SEROLOGY: Coronavirus PCR pending. DIAGNOSTIC STUDIES/IMAGING/OTHER: CT of the brain showed mild age-related generalized parenchymal volume loss and mild chronic microvascular ischemic changes. A 12-lead EKG showed normal sinus rhythm with a heart rate of 89. ASSESSMENT AND PLAN: 1. Hypertensive crisis after blood pressure medications received in ER, blood pressure 127/79. Benicar held tonight, resume tomorrow. Metoprolol tartrate 2.5 mg IV every 6 hours p.r.n. for systolic blood pressure greater than 150, started. Hydralazine is on back order. 2. Sinus tachycardia, this is improved. Heart rate is 87. Currently, the patient has received beta blockers, is currently on Lopressor 50 mg b.i.d. He has also been started on losartan potassium, Cozaar 50 mg daily for hypertension. 3. Acute kidney injury with dehydration. BUN 12, creatinine 1.39, and estimated GFR 51. Continue normal saline banana bag 125 mL an hour and reassess renal labs tomorrow. 4. Anxiety with panic attack. Resume home dose of clonazepam 2 mg, monitor. 5. Hyperlipidemia. Check lipid panel, hemoglobin A1c, and TSH in the morning. 6. Gastroesophageal reflux disease/prophylaxis. Continue Protonix and p.r.n. Zofran. 7. Observation status. History and physical. Billing code 16004. Dictated by Ze Fallon, SPEECH AND LANGUAGE TUTOR MD [facility] ReddP/MODL /[id number]
[2020-02-20] VITALS (10 sets, daily range): BP systolic 108–149; BP diastolic 79–104
[2020-02-20 06:13] LABS: BASOPHILS % 0.6 % (0.0-1.0); EOSINOPHILS # (AUTO) 0.2 (0.0-0.4); EOSINOPHILS % 3.1 % (0.0-6.0); HEMATOCRIT 45.2 % (38.2-49.6); LYMPHOCYTES # (AUTO) 1.5 (1.0-3.2); MEAN CORPUSCULAR HEMOGLOBIN 32.7 pg (28-32); MEAN CORPUSCULAR HGB CONC 33.2 g/dL (31-35); MEAN CORPUSCULAR VOLUME 98.5 fL (81-99); MONOCYTES # (AUTO) 0.8 (0.2-0.8); MONOCYTES % 10.9 % (4.4-11.3); NEUTROPHILS # (AUTO) 4.3 (2.1-6.9); NEUTROPHILS % 62.8 % (38.7-80.0); PLATELET COUNT 152 x10e3/uL (140-360); RED BLOOD COUNT 4.59 x10e6/uL (4.3-5.7); RED CELL DISTRIBUTION WIDTH 13.9 % (11.7-14.4)
[2020-02-20 06:59] LABS: ALBUMIN 3.7 g/dL (3.5-5.0); ALBUMIN/GLOBULIN RATIO 1.7 (0.8-2.0); ANION GAP 11.7 mmol/L (8-16); CALCIUM 8.1 mg/dL (8.4-10.2); CREATININE, SERUM 1.43 mg/dL (0.72-1.25); POTASSIUM 3.7 mmol/L (3.5-5.1)
--- NOTE | 2020-02-20 07:00 | NUR ---
Bedside report and walking rounds completed with oncoming nurse. Patient in bed with call light within reach. No issues or concerns noted.
[2020-02-20 07:20] LABS: MAGNESIUM 1.6 MG/DL (1.3-2.1); PHOSPHORUS 2.3 MG/DL (2.3-4.7)
--- NOTE | 2020-02-20 07:30 | NUR ---
PATIENT IS AWAKE, ALERT, AMBULATING IN HIS ROOM AND IS IN STABLE CONDITION WITH NO S/S OF RESPIRATORY DISTRESS. NO PAIN VOICED. TELEMETRY APPLIED. CALL LIGHT IS WITHIN REACH OF PATIENT, PATIENT INSTRUCTED TO CALL FOR ASSISTANCE NEEDED.
[2020-02-20 07:42] LABS: CHOL/HDL RATIO 3.7 (3.9-4.7)
[2020-02-20] MEDS: FAMOTIDINE 20 MG TAB PO SCH ×2 (07:55→16:23)
[2020-02-20] MEDS: METOCLOPRAMIDE HCL 10 MG TAB PO SCH ×3 (07:55→16:23)
[2020-02-20 08:01] LABS: THYROID STIMULATING HORMONE 3.45 uIU/mL (0.350-4.940)
[2020-02-20] MEDS: TAMSULOSIN HCL 0.4 MG CAP PO SCH (08:12)
[2020-02-20] MEDS: METOPROLOL TARTRATE 50 MG TAB PO SCH ×2 (08:12→16:23)
[2020-02-20] MEDS: LOSARTAN POTASSIUM 100 MG TAB PO SCH (08:12)
[2020-02-20] MEDS ORDERED: PANTOPRAZOLE SO20 MG PO (11:23)
[2020-02-20] MEDS ORDERED: ESIDRIX25 MG PO (11:24)
[2020-02-20] MEDS ORDERED: COZAAR100 MG PO (11:24)
[2020-02-20] MEDS ORDERED: METOPROLOL TART50 MG PO (11:24)
[2020-02-20] MEDS ORDERED: HYDROCHLOROTHIAZIDE 25 MG TAB PO SCH (11:30)
--- NOTE | 2020-02-20 18:33 | NUR ---
INFORMED N.P. OF 1400, 1600, AND 1800 BP'S - NEW ORDER TO INCREASE HCTZ TO 25MG STARTING TOMORROW MORNING.
[2020-02-20] MEDS ORDERED: POTASSIUM CHLORIDE 10MEQ EA PO SCH (19:00)
--- NOTE | 2020-02-20 19:02 | NUR ---
PATIENT IS IN STABLE CONDITION WITH NO S/S OF RESPIRATORY DISTRESS. NO PAIN VOICED. TELEMETRY APPLIED. CALL LIGHT IS WITHIN REACH OF PATIENT, PATIENT INSTRUCTED TO CALL FOR ASSISTANCE NEEDED. PATIENT GIVEN A SURGICAL MASK TO AMBULATE IN THE HALLWAY. BEDSIDE SHIFT REPORT GIVEN TO ONCOMING NURSE.
[2020-02-20] MEDS ORDERED: FUROSEMIDE INJ 10 MG/ML 2 ML VIAL IV ONE (19:30)
--- NOTE | 2020-02-20 20:00 | NUR ---
INITIAL ASSESSMENT COMPLETE, PATIENT WALKING AROUND ROOM, VERY UN HAPPY HE IS STAYING ANOTHER NIGHT, TELE ON PT, IV INTACT, ABLE TO REACH CALL LIGHT, BLOOD PRESSURE ELEVATED, DRS AWARE, MEDICATIONS GIVEN TODAY AND ADJUSTED, PT TO TAKE A SHOWER, WILL CONTINUE TO MONITOR PT
[2020-02-20] MEDS ORDERED: OLMESARTAN 20 MG TAB PO SCH (21:00)
[2020-02-20] MEDS: ZOLPIDEM TARTRATE 10 MG TAB PO PRN (22:20)
[2020-02-21] VITALS: BP 137/67
--- NOTE | 2020-02-21 | NUR ---
pt vs checked at 2200, michelle instructed to not wake pt till he woke up, tele on pt to monitor
[2020-02-21 04:00] VITALS: BP 144/96
[2020-02-21 04:50] LABS: BASOPHILS # (AUTO) 0.1 (0.0-0.1); BASOPHILS % 0.8 % (0.0-1.0); EOSINOPHILS # (AUTO) 0.4 (0.0-0.4); EOSINOPHILS % 4.3 % (0.0-6.0); HEMATOCRIT 49.7 % (38.2-49.6); HEMOGLOBIN 16.3 g/dL (14.0-18.0); LYMPHOCYTES # (AUTO) 1.8 (1.0-3.2); LYMPHOCYTES % 20.2 % (18.0-39.1); MEAN CORPUSCULAR HEMOGLOBIN 31.4 pg (28-32); MEAN CORPUSCULAR HGB CONC 32.8 g/dL (31-35); MEAN CORPUSCULAR VOLUME 95.8 fL (81-99); MONOCYTES # (AUTO) 0.9 (0.2-0.8); MONOCYTES % 10.7 % (4.4-11.3); NEUTROPHILS # (AUTO) 5.6 (2.1-6.9); NEUTROPHILS % 63.2 % (38.7-80.0); PLATELET COUNT 166 x10e3/uL (140-360); RED BLOOD COUNT 5.19 x10e6/uL (4.3-5.7); RED CELL DISTRIBUTION WIDTH 13.3 % (11.7-14.4)
--- NOTE | 2020-02-21 05:00 | NUR ---
pt up walking halls, b/p down this morning, no distress noted, call light in reach
[2020-02-21 05:14] LABS: ALBUMIN 4.4 g/dL (3.5-5.0); ALBUMIN/GLOBULIN RATIO 1.5 (0.8-2.0); ANION GAP 15.7 mmol/L (8-16); CALCIUM 8.9 mg/dL (8.4-10.2); CREATININE, SERUM 1.53 mg/dL (0.72-1.25); POTASSIUM 3.7 mmol/L (3.5-5.1)
--- NOTE | 2020-02-21 07:00 | NUR ---
RECEIVED PATIENT RESTING IN BED NO S/S OF DISTRESS. BED LOW, WHEELS LOCKED, SIDE RAILS X2. CALL LIGHT IN REACH WILL CONTINUE TO MONITOR PATIENT.
[2020-02-21] MEDS ORDERED: HYDROCHLOROTHIA25 MG PO (08:26)
[2020-02-21 08:55] VITALS: BP 159/103
[2020-02-21] MEDS: METOCLOPRAMIDE HCL 10 MG TAB PO SCH (09:00)
[2020-02-21] MEDS: FAMOTIDINE 20 MG TAB PO SCH (09:00)
[2020-02-21] MEDS ORDERED: HYDROCHLOROTHIAZIDE 25 MG TAB PO SCH (09:00)
[2020-02-21] MEDS: TAMSULOSIN HCL 0.4 MG CAP PO SCH (09:01)
[2020-02-21] MEDS: LOSARTAN POTASSIUM 100 MG TAB PO SCH (09:01)
[2020-02-21] MEDS: METOPROLOL TARTRATE 50 MG TAB PO SCH (09:01)
[2020-02-21 09:19] VITALS: BP 159/103
--- NOTE | 2020-02-21 10:20 | NUR ---
REMOVED PATIENTS IV. CATHETER TIP INTACT AND PRESSURE DRESSING APPLIED.
--- NOTE | 2020-02-21 10:26 | NUR ---
PATIENT DISCHARGED FROM FACILITY. PATIENT GATHERED ALL PERSONAL BELONGINGS, DISCHARGE INSTRUCTIONS AND FOLLOW UP INFORMATION. PATIENT LEFT UNIT IN WHEELCHAIR AND WENT HOME VIA PRIVATE AUTO. NO S/S OF DISTRESS LEAVING FACILITY.
--- NOTE | 2020-02-22 06:39 | Discharge Summary ---
ADMISSION DIAGNOSES: 1. Hypertensive crisis. 2. Sinus tachycardia. 3. Acute kidney injury due to dehydration. 4. Anxiety with panic attack. 5. Hyperlipidemia. 6. Gastroesophageal reflux disease. DISCHARGE DIAGNOSES: 1. Hypertensive crisis. 2. Sinus tachycardia. 3. Acute kidney injury due to dehydration. 4. Anxiety with panic attack. 5. Hyperlipidemia. 6. Gastroesophageal reflux disease. 7. Hypercholesterolemia. HISTORY: 1. Hypertension. 2. GERD. 3. Hyperlipidemia. 4. Anxiety. 5. Chronic prostatitis. 6. Hypogonadism. SURGICAL HISTORY: Cataract surgery, cholecystectomy, and L4-L5 laminectomy. FAMILY HISTORY: The patient's brother had a heart attack and had a bypass. Both of the patient's mother and father had emphysema. SOCIAL HISTORY: Denies use of tobacco or illicit drugs. He drinks occasionally. HOSPITAL COURSE: A 69-year-old male, admitted to the ER with complaints of hypertension. He felt flushed and dizzy while mowing his lawn, but it went away. In the emergency room, his blood pressure was 163/114. He states at home, his blood pressure was 216/139. He had taken Benicar the night before and required Ativan in the ER as he was very anxious. He admits that he was having panic attacks while in the ER. The patient was started on metoprolol and losartan, which controlled the systolic pressure. Due to uncontrolled diastolic pressure, hydrochlorothiazide was added. As long as the patient is home, his blood pressures are controlled. He is very easy to upset and works himself up. He was advised to follow up with primary care in 1 to 2 weeks with his new prescriptions of hydrochlorothiazide, losartan, and metoprolol. He will follow up with primary care in 1 to 2 weeks and was advised to take a daily blood pressure log to his primary care or [facility] and they can determine whether the dosing of his medications need to be changed to that point. The patient understands discharge instructions and agrees to plan, vital signs stable, the patient afebrile. Dictated by Kathie Ro NP MD [facility] Redd/MODL /[id number]
== END 2020-02-21 10:26 | disposition home or self-care (01) ==
LOC: ER 13:45 → ERHOLD 16:44 → MED/SURG 20:45
PROVIDERS: ADMIT Internal Medicine; ATTEND Internal Medicine
DX: I16.9 Hypertensive crisis, unspecified (principal); E78.5 Hyperlipidemia, unspecified; R00.0 Tachycardia, unspecified; N17.9 Acute kidney failure, unspecified; E86.0 Dehydration; F41.0 Panic disorder [episodic paroxysmal anxiety]; K21.9 Gastro-esophageal reflux disease without esophagitis; E78.00 Pure hypercholesterolemia, unspecified; Z82.49 Family history of ischemic heart disease and other diseases of the circulatory system; Z83.6 Family history of other diseases of the respiratory system; Z11.59 Encounter for screening for other viral diseases
CPT/HCPCS: 36415 ×3; 70450; 80053 ×3; 80061; 83036; 83735; 84100; 84443; 85025 ×3; 93005; 99284; G0378 ×3; J0360; J1940; J2060; J2405; J3411; J7030; J8597 ×2; Q9967; U0002

== ENCOUNTER → 2022-03-11 | Outpatient (CLI) | payer MEDICARE ==
[~2022-03-11] MED LIST changes: +BENICAR20 MG PO; +COZAAR100 MG PO; +ESIDRIX25 MG PO; +HYDROCHLOROTHIA25 MG PO; +METOCLOPRAMIDE H5 MG; +METOPROLOL TART50 MG PO; +OLMESARTAN MEDO40 MG; +PANTOPRAZOLE SO20 MG PO; +TAMSULOSIN PO; +ZENPEP PO; +ZOLPIDEM PO
== END ==
LOC: DX 08:36
PROVIDERS: ATTEND Internal Medicine Gastroenterology
DX: Z86.010 Personal history of colon polyps (principal)
CPT/HCPCS: 74270